=== PATIENT | male | born 1955 | race African-American/Black ===

== ENCOUNTER → 2020-04-26 09:22 | Outpatient (BNVA) | payer BC, SELFPAY | PROVIDERS: PCP Internal Medicine; Visit Provider Urology | DX: N40.1 Benign prostatic hyperplasia with lower urinary tract symptoms (principal); R35.1 Nocturia; R97.20 Elevated prostate specific antigen [PSA]; N52.9 Male erectile dysfunction, unspecified | CPT/HCPCS: 51798; 81002 ==

== ENCOUNTER → 2020-09-06 09:19 | Outpatient (BNVA) | payer BC, SELFPAY | PROVIDERS: PCP Internal Medicine; Visit Provider Urology ==

== ENCOUNTER 2020-12-19 12:18 | Outpatient (REF) | payer BC, SELFPAY ==
[2020-12-19 14:40] LABS: PSA,Total (Free>4and<10) 8.03 ng/mL (0.00-4.00)
[2020-12-20 13:50] LABS: Free Prostate Spec Ag 0.5 ng/mL; Percent Free Prostate Spec Ag 7 % (calc) (>25); Prostate Specific Ag Total 6.9 ng/mL (< OR = 4.0)
== END 2020-12-19 12:19 | disposition home or self-care (01) ==
LOC: HO.HMGCLDS 12:18
PROVIDERS: PCP Internal Medicine; Visit Provider Urology
DX: Z12.5 Encounter for screening for malignant neoplasm of prostate (principal); R97.20 Elevated prostate specific antigen [PSA]
CPT/HCPCS: 36415; 84153; 84154

== ENCOUNTER → 2021-01-07 08:27 | Outpatient (BNVA) | payer BC, SELFPAY | PROVIDERS: PCP Internal Medicine; Visit Provider Urology ==

== ENCOUNTER → 2021-02-11 14:04 | Outpatient (BNVA) | payer BC, SELFPAY | PROVIDERS: PCP Internal Medicine; Visit Provider Urology ==

== ENCOUNTER 2021-09-15 10:33 | Outpatient (REF) | payer BC, SELFPAY ==
[2021-09-15 12:22] LABS: PSA,Total (Free>4and<10) 11.29 ng/mL (0.00-4.00)
== END 2021-09-15 10:34 | disposition home or self-care (01) ==
LOC: HO.HMGCLDS 10:33
PROVIDERS: PCP Internal Medicine; Visit Provider Urology
DX: Z12.5 Encounter for screening for malignant neoplasm of prostate (principal); N13.8 Other obstructive and reflux uropathy; N40.1 Benign prostatic hyperplasia with lower urinary tract symptoms; R97.20 Elevated prostate specific antigen [PSA]
CPT/HCPCS: 36415; 84153

== ENCOUNTER → 2021-09-26 09:08 | Outpatient (BNVA) | payer BC, SELFPAY | PROVIDERS: PCP Internal Medicine; Visit Provider Urology | DX: R97.20 Elevated prostate specific antigen [PSA] (principal); N40.1 Benign prostatic hyperplasia with lower urinary tract symptoms | CPT/HCPCS: 51798 ==

== ENCOUNTER 2021-11-06 11:35 | Outpatient (REF) | payer BC, SELFPAY ==
[2021-11-06 11:24] VITALS: BP 127/72; PULSE 70; RESP 16; TEMP 37.2; O2SAT 97
[2021-11-06 11:26] VITALS: BMI 21.4
--- NOTE | 2021-11-06 12:41 | W.PM.OPN ---
Operative Note Operative Note Date of Service: 11/06/21 Narrative: Preoperative diagnosis: Elevated PSA Postoperative diagnosis: Elevated PSA Procedure: 1. transrectal ultrasound measurement of prostate 2. transrectal ultrasound-guided pudendal nerve block 3. transrectal ultrasound-guided prostate biopsy 12 core Surgeon: Dr. Luis Jefferson Anesthetic: Local Indications for procedure: Elevated PSA Procedure: After informed consent was verified, the patient was brought into the procedure area and lay left-hand side down on the table. Patient identity confirmed. Perioperative antibiotics confirmed. Safety pause time out performed. EZRA performed to dilate rectal sphincter Iodine 10cc with Gel was placed per rectum Ultrasound probe was placed per rectum The prostate was measured in 3 dimensions Total volume equals 40 gm Small cystic structures were noted No calcifications were noted at the surgical margin The prostate was otherwise homogeneous in nature An ultrasound-guided pudendal nerve block was performed using 10 cc of 1% lidocaine. 8 cc was placed at the base and 2 cc of the apex. A 12 core biopsy was performed with 6 cores each side. Two cores were taken at the apex, mid and base. Cores were spaced between lateral and medial. He tolerated the procedure well. Was able to ambulate to bathroom after 5 minutes. Printed instructions regarding antibiotic use and common side effects such as low-grade temperature, potential infection and bleeding were given Pathology: 12 core prostate biopsy.
== END 2021-11-06 11:36 | disposition home or self-care (01) ==
LOC: HO.MS 11:35
PROVIDERS: PCP Internal Medicine; Visit Provider Urology
PROC: (CPT 55700; principal; 2021-11-06 12:00)
DX: C61 Malignant neoplasm of prostate (principal); R97.20 Elevated prostate specific antigen [PSA]
CPT/HCPCS: 55700; 76942; 88305; 88344

== ENCOUNTER → 2021-12-23 10:56 | Outpatient (BNVA) | payer BC, SELFPAY | PROVIDERS: PCP Internal Medicine; Visit Provider Urology | DX: C61 Malignant neoplasm of prostate (principal); N40.1 Benign prostatic hyperplasia with lower urinary tract symptoms; N13.8 Other obstructive and reflux uropathy; R33.9 Retention of urine, unspecified; N52.9 Male erectile dysfunction, unspecified; R97.20 Elevated prostate specific antigen [PSA]; Z96.0 Presence of urogenital implants | CPT/HCPCS: 51798 ==

== ENCOUNTER → 2022-01-23 09:55 | Outpatient (BNVA) | payer BC, SELFPAY | PROVIDERS: PCP Internal Medicine; Visit Provider Urology | DX: C61 Malignant neoplasm of prostate (principal) | CPT/HCPCS: 96402; J9217 ==

== ENCOUNTER 2022-02-24 07:16 | Outpatient (REF) | payer BC, SELFPAY ==
[2022-02-24 07:44] VITALS: BMI 22.0
[2022-02-24 07:45] VITALS: BP 127/78; PULSE 78; RESP 16; TEMP 36.7; O2SAT 98
--- NOTE | 2022-02-24 08:29 | W.PM.OPN ---
Operative Note Operative Note Date of Service: 02/24/22 Narrative: Preoperative diagnosis: Prostate cancer Postoperative diagnosis: Prostate cancer Procedure: 1. Transrectal ultrasound-guided pudendal nerve block 2. Transrectal ultrasound-guided gold seed placement Surgeon: Dr. Luis Jefferson Anesthetic: Local Indications for procedure: Prostate Cancer Procedure: After informed consent was verified, the patient was brought into the procedure area and lay left-hand side down on the table. Patient identity confirmed. Perioperative antibiotics confirmed. Gel was placed per rectum Ultrasound probe was placed per rectum A ultrasound-guided pudendal nerve block was performed using 10 cc of 1% lidocaine. 8 cc was placed at the base and 2 cc of the apex. 2 gold seed markers placed. 1 on the right, 1 on the left. The purpose is for triangulation. He tolerated the procedure well. Was able to ambulate to bathroom after 5 minutes. Printed instructions regarding antibiotic use and common side effects such as low-grade temperature and bleeding were given
== END 2022-02-24 07:17 | disposition home or self-care (01) ==
LOC: HO.MS 07:16
PROVIDERS: PCP Internal Medicine; Visit Provider Urology
PROC: (CPT 55876; principal; 2022-02-24 08:00)
DX: C61 Malignant neoplasm of prostate (principal); N40.1 Benign prostatic hyperplasia with lower urinary tract symptoms; R35.1 Nocturia; R97.20 Elevated prostate specific antigen [PSA]
CPT/HCPCS: 55876; 76942; A4648

== ENCOUNTER 2022-05-18 06:09 | Day surgery (SDC) | payer BC, SELFPAY ==
[2022-05-13 14:58] VITALS: BMI 22.8
[2022-05-18 06:22] VITALS: BP 139/75; PULSE 79; RESP 18; TEMP 36.5; O2SAT 99
[2022-05-18 06:24] VITALS: BMI 22.8
[2022-05-18] MEDS: Lactated Ringers 1,000 ML 50 ML IVCONT (06:39)
--- NOTE | 2022-05-18 07:27 | HO.ANESPROP2 ---
HPI - Anesthesia Eval Consult details Narrative: for space OAR PMFSH Active Problems Active Problems: All Active Problems (Updated 05/13/22 @ 14:44 by Britt Valentin RN) Erectile dysfunction (Acute) Prostate cancer (Acute) Nocturia (Acute) Benign prostatic hyperplasia with lower urinary tract symptoms (Acute) Elevated PSA (Acute) Past Medical History Medical History (Updated 05/13/22 @ 14:44 by Britt Valentin RN) Benign prostatic hyperplasia with lower urinary tract symptoms Elevated PSA Erectile dysfunction Nocturia Prostate cancer Family History Family history of problems with anesthesia: No Surgical History Surgical History (Updated 05/13/22 @ 14:57 by Britt Valentin RN) H/O colonoscopy History of surgery Hx of prostate biopsy History of Problems with Anesthesia: No Social History Social History Are you a primary healthcare educator to a significant other at home: No Do you presently have visiting nurse or other home services: No Patient Tobacco Use Status: Never used Tobacco Use of substances other than those prescribed or required for medical reasons: No Have you been hit, kicked, punched, or otherwise hurt by someone within the past year? If so, by whom?: No Are you DNR?: No Advance Directives: No (states is primary contact-states has form at home) Advance Directives Information Provided: Yes Advance Directives on File: No Recently lost weight without trying: No Eating poorly because of decreased appetite: No Nutrition Risks: No Nutritional Risk Poor oral hygiene: No Meds Allergies Allergy/AdvReac Type Severity Reaction Status Date / Time ibuprofen Allergy Unknown unknown Verified 12/22/21 09:39 Active Medications: Current Medications Lactated Ringer's (Lr) 1,000 mls @ 50 mls/hr IVCONT .Q20H MICKY Last Admin: 05/18/22 06:39 Dose: 50 mls/hr Home Medications Medication Instructions Recorded Confirmed Last Taken Type finasteride 5 mg tablet 5 mg PO BEDTIME 05/13/22 05/13/22 Unknown History Exam Exam Date and Time: May 18, 2022 0727 Height,Weight and Vital Signs: Height 5 ft 8 in Weight 68.039 kg Last Vital Signs Temp 97.7 F 05/18/22 06:22 Pulse 79 05/18/22 06:22 Resp 18 05/18/22 06:22 BP 139/75 05/18/22 06:22 Pulse Ox 99 05/18/22 06:22 O2 Del Method Room Air 05/18/22 06:22 Airway Mallampati Class: I TM Dist: >3cm Neck ROM: Full Heart: ok Lungs: ok Assessment and Plan Assessment Anesthesia Assessment: Anesthesia Plan Discussed and Chart Reviewed Final Anesthetic Review Family History of Problems with Anesthesia: No History of Problems with Anesthesia: No NPO: Yes ASA Class: II Final Preanesthetic Review: No Changes in Pt Med Stat, Meds/Allgs Chart Reviewed, Consent Obtained/Reviewed and Anes Risks/Benef Reviewed Patient Risk: Low Procedure Risk: Low Anesthetic Plan Anesthetic Plan: GA and Agree w/ Assess. and Plan Disposition: Standard PACU
--- NOTE | 2022-05-18 10:59 | MHC.SHP ---
Pre-Procedural Eval Section A Date of Service: 05/18/22 The patient is an INPATIENT: No Changes since office visit: No Cold of Flu in the past 2 weeks, No New Medical Problems, No Changes in Medication and No Patient answered all questions The History & Physical has been completed within 30 days and I have reviewed it.: Yes Section B Chief Complaint: Malignant neoplasm of prostate Allergies: Allergies Allergy/AdvReac Type Severity Reaction Status Date / Time ibuprofen Allergy Unknown unknown Verified 12/22/21 09:39 Review of Systems Sugical H&P ROS: Negative: Constitution, Cardiovascular, Respiratory, Neurological, Psychiatric, Hem-Onc, Allergic/Immunologic, Gastrointestinal, Genitourinary, Musculoskeletal, Integumentary, Endocrine and Eyes/Ears/Nose/Throat Exam Surgical H&P Exam: Normal: HEENT, Normal: Heart, Normal: Lungs, Normal: Extremities, Normal: Abdomen, Normal: Skin and Normal: Neurological Plan Diagnosis/Plan: Unchanged (Space oar placement) I have reviewed the history and physical and performed a pertinent physical examination on my patient. No changes have occurred unless specified. Time Spent With Patient Time: Total time managing care of this patient today ____ minutes.
--- NOTE | 2022-05-18 12:02 | W.PM.OPN ---
Operative Note Operative Note Date of Service: 05/18/22 Narrative: Preoperative diagnosis: Prostate cancer Postoperative diagnosis: Prostate cancer Procedure: 1. Transrectal ultrasound-guided perineal SpaceOAR gel placement Surgeon: Dr. Luis Jefferson Anesthetic: Sedation Indications for procedure: Prostate Cancer Procedure: After informed consent was verified, the patient was brought into the operating room and anesthesia was performed per protocol. The patient was placed in a modified dorsal lithotomy position. Gel was placed per rectum Ultrasound probe was placed per rectum. The prostate was visualized in sagittal and transverse dimensions. Local anesthetic was infiltrated in the perineal area using 10 cc of lidocaine The delivery needle was advanced bevel down in the midline under ultrasound guidance to the apex of the prostate. It was advanced in the plane the prostate from the rectum to the midpoint of the prostate. Location was determined using sagittal and transverse imaging. At the midpoint of the prostate 1 cc of saline was placed to confirm needle position. Second cc of saline was placed to confirm spread toward the base of the prostate. With the needle in the confirmed position 10 cc of gel mixture was injected. Good separation was seen of the rectum from the prostate space running in the midline from the base toward the apex of the prostate. Following completion of the procedure the probe was removed from the rectum. He tolerated the procedure well. He was extubated in the operating room and transferred in stable condition to the recovery area. Pathology none Drains none
[2022-05-18 12:13] VITALS: BP 116/68; PULSE 85; RESP 16; TEMP 36.3; O2SAT 98
[2022-05-18 12:18] VITALS: BP 121/69; PULSE 85; RESP 16; O2SAT 98
[2022-05-18 12:23] VITALS: BP 125/71; PULSE 82; RESP 16; O2SAT 98
[2022-05-18 12:28] VITALS: BP 129/73; PULSE 75; RESP 16; O2SAT 99
[2022-05-18 12:43] VITALS: BP 125/71; PULSE 69; RESP 16; TEMP 36.2; O2SAT 98
== END 2022-05-18 14:04 | disposition home or self-care (01) ==
PROVIDERS: PCP Internal Medicine; Visit Provider Urology
PROC: (CPT 55874; principal; 2022-05-18 08:40)
DX: C61 Malignant neoplasm of prostate (principal); N40.1 Benign prostatic hyperplasia with lower urinary tract symptoms; R35.1 Nocturia
CPT/HCPCS: 55874; A4648; C1889; J1956; J3010

== ENCOUNTER 2022-08-20 10:49 | Outpatient (AMB) | payer BC, SELFPAY ==
--- NOTE | 2022-08-20 11:08 | A.OFFVIS_ITS ---
Intake Intake Visit Reasons: 3month follow up Intake Note: Patient is present for PVR/ Urology Med: Doxazosin, Finasteride, Sildenafil Antibiotic Allergy:None Blood Thinner: None PVR: 54ml Allergies ibuprofen Allergy (Unknown, Verified 08/20/22 11:09) unknown Medication List - Last Reconciled 08/20/22 by Luis Jefferson MD doxazosin 2 mg PO BEDTIME 90 days finasteride 5 mg PO BEDTIME 90 days sildenafil 100 mg PO DAILY PRN 30 days HPI HPI Comments History of Present Illness Details Mr Frias is a very pleasant [place] male. He is a patient of Dr Holder. He is seen for the following urologic conditions. - erectile dysfunction - prostate cancer Follow-up after completion of external beam radiation Tolerated therapy Did have increased urgency and frequency which responded to increased dose of doxazosin. He is now trying to reduce this dose. Otherwise did notice hot flashes from hormone therapy with some degree of muscle mass reduction Encouraged exercise Will remain on finasteride until end of year 3 month follow-up with PSA Prostate cancer - Grade Group 4 Initial therapy radiation with hormone therapy 07/[address] [facility] [address] [place], 7000Gy 28 fractions - SpaceOAR placement prior Adenocarcinoma of the prostate - T1c N0 M0, [place] score 4+3, Grade Group 3, PSA at Diagnosis 11 - NCCN unfavorable intermediate risk group Prostate cancer was diagnosed Dr Jefferson Diagnosis was reached by - needle biopsy - elevated PSA 11 - 40 g Date: 10/30 12 Core biopsy Positive Biopsies: 4 Negative Biopsies: 8 (%) Positive: Locations: Left base lateral [place] 3 + 3 10%, left mid lateral [place] 3 + 3 5%, left mid medial 4+3 30%, left apex lateral 3+4 15% TNM Classification of Malignant Tumours (TNM) - T1c Staging Imaging - 01/28 MRI organ confined small area of diffusion restriction 5mm left lateral apex Associated conditions erectile dysfunction yes Elevated PSA Repeat PSA 08/28 - 4.2 free 7%, 12/29 6.9, 09/29 11.3 Normal EZRA 2+ Erectile dysfunction: Good response with penile pump and restriction band Would like to continue with this He presents today for for continued evaluation and management of erectile dysfunction - use high dose PD 5. Symptoms have been present for/since 2011. Current treatment includes Viagra/sildenafil. Prior therapies include oral medications. At this time he experiences erections are partial and adequate for vaginal penetration - although gradually upcoming week. Nocturnal erections do not occur. Currently they are in a stable relationship. Recent labs included a PSA (prostate-specific antigen) 2015 2.3, 2016 3.9, 11/26 4.2. Overall he is satisfied with the current management. Therapeutic plan includes maintaining current therapy. [facility] Medical History (Updated 05/13/22 @ 14:44 by Britt Valentin RN) Benign prostatic hyperplasia with lower urinary tract symptoms Elevated PSA Erectile dysfunction Nocturia Prostate cancer Surgical History (Updated 05/13/22 @ 14:57 by Britt Valentin RN) H/O colonoscopy History of surgery Hx of prostate biopsy Social History Are you a primary care consultant to a significant other at home: No Do you presently have visiting nurse or other home services: No Patient Tobacco Use Status: Never used Tobacco Review of Systems Const Denies chills and Denies fever(s) Card Reports no additional complaints and Denies syncope Resp Denies cough GI Denies abdominal pain and Denies heartburn Reports as per HPI and Denies change in libido Neuro Denies syncope Psych Denies change in libido Endo Denies change in libido Physical Exam Const General: cooperative, healthy appearing, comfortable and no acute distress Orientation/consciousness: patient oriented x3 HEENT Face and sinus: Yes normal facial exam Mouth: moist mucous membranes Neck Neck: Yes normal visual inspection, Yes full ROM and Yes trachea midline Chest Chest palpation & inspection: normal inspection of the chest Resp Effort & Inspection: normal respiratory effort, able to speak in complete sentences and no respiratory distress GI Inspection: Yes normal to inspection Rectal Exam - Male: Yes normal sphincter tone and Yes prostate normal Male General Exam: Yes normal external exam Penis: normal penis and circumcised Meatus: meatus normal Scrotum: scrotum normal Testes: Testes normal Back/Spine/Pelvis Cervical Spine: normal cervical lordosis Thoracic/Lumbar Spine: thoracic and lumbar spine normal to inspection Skin General skin exam: no rashes or lesions noted Neuro General: patient oriented x3, gait normal, tone normal and moves all extremities Extrem General: Yes normal to inspection and Yes capillary refill normal Office Procedures Post Void Residual Post Residual Void Post Void Residual (PVR): 54 [id number] Void Residual by ultrasound Results AMB Urinalysis, Automated UA Leukoctes 0 Dre/uL Last Edit by Estephania Grossman, A on 08/20/22 11:23 UA Nitrite Last Edit by Estephania Grossman, RMA on 08/20/22 11:23 UA Urobilinogen 0.2 mg/dL Last Edit by Estephania Grossman, RMA on 08/20/22 11:2 3 UA Protein 0 mg/dL Last Edit by Estephania Grossman, RMA on 08/20/22 11:23 UA pH 6.0 Last Edit by Estephania Grossman, RMA on 08/20/22 11:23 UA Blood 0 Raul/uL Last Edit by Estephania Grossman, A on 08/20/22 11:23 UA Specific [place] 1.000 Last Edit by Estephania Grossman, A on 08/20/22 11: 23 UA Ketone Last Edit by Estephania Grossman, RMA on 08/20/22 11:23 UA Bilirubin 0 mg/dL Last Edit by Estephania Grossman, A on 08/20/22 11:23 UA Glucose 0 mg/dL Last Edit by Estephania Grossman, A on 08/20/22 11:23 Assessment & Plan Assessment & Plan (1) Prostate cancer: Comment: Low volume, high risk, clinically confined Code(s): C61 - Malignant neoplasm of prostate Plan 3 month follow-up Orders: Orders AMB Post Void Residual by ultrasound Today N40.1 - Benign prostatic hyperplasia with lower urinary tract symptoms Luis Jefferson MD AMB Urinalysis Automated Today Z13.9 - Encounter for screening, unspecified Luis Jefferson MD Prostate Specific Antigen 3 Months C61 - Malignant neoplasm of prostate Luis Jefferson MD Medications: Changed From finasteride 5 mg PO BEDTIME C61 - Malignant neoplasm of prostate To finasteride 5 mg PO BEDTIME 90 tabs 1RF 90 days C61 - Malignant neoplasm of prostate Luis Jefferson MD Discontinued finasteride 5 mg PO DAILY 90 tabs 1RF 90 days N40.1 - Benign prostatic hyperplasia with lower urinary tract symptoms, R33.9 - Retention of urine, unspecified, R97.20 - Elevated prostate specific antigen [PSA] Britt Valentin RN Patient Instructions: Imaging studies, laboratory and physical exam results were discussed and reviewed in detail. No major barriers to patient understanding were identified. An opportunity to ask questions regarding the treatment plan was provided. All questions were answered. The patient expressed understanding and agreement with the above treatment plan. The patient is aware they should contact our office by phone for worsening of their current condition or the appearance of new urologic symptoms. Compliance is encouraged with any medications and followup testing that is ordered. It is a privilege to participate in the urologic care of your patient. If you have any questions or concerns regarding treatment for the above conditions, or other urologic issues, please do not hesitate to contact me. The office telephone contact is [phone]. This note is constructed using voice recognition software. While every effort has been made to ensure accuracy analytics lead errors may have been included. Yours sincerely, Dr Luis Jefferson MD, [facility] - Urology Providers of Expert, Compassionate Care for the Genitourinary System Coding Level of Care Code Est Pt Level 3 (02619) Diagnoses Prostate cancer C61 CPT Codes Post Residual Void - PVR CPT Code: 30730-Sfjx Void Residual by ultrasound ([id number])
== END 2022-08-20 11:33 | disposition home or self-care (01) ==
PROVIDERS: Visit Provider Urology
DX: C61 Malignant neoplasm of prostate (principal)
CPT/HCPCS: 99213

== ENCOUNTER → 2022-08-20 10:49 | Outpatient (BNVA) | payer BC, SELFPAY | PROVIDERS: Visit Provider Urology | DX: C61 Malignant neoplasm of prostate (principal); N52.9 Male erectile dysfunction, unspecified; Z79.899 Other long term (current) drug therapy | CPT/HCPCS: 51798 ==

== ENCOUNTER 2022-11-02 09:49 | Outpatient (REF) | payer BC, SELFPAY ==
[2022-11-02 13:52] LABS: Prostate Specific Antigen < 0.10 ng/mL (<0.05-4.0)
== END 2022-11-02 09:50 | disposition home or self-care (01) ==
LOC: HO.HMGCLDS 09:49
PROVIDERS: PCP Internal Medicine; Visit Provider Urology
DX: C61 Malignant neoplasm of prostate (principal)
CPT/HCPCS: 36415; 84153

== ENCOUNTER 2022-11-20 09:47 | Outpatient (AMB) | payer BC, SELFPAY ==
--- NOTE | 2022-11-20 09:47 | MHC.OFFVIS ---
Intake Intake Visit Reasons: 3M PSA(set) Intake Note: Patient is present for TELEHEALTH FOLLOWUP Urology Med: Doxazosin, Finasteride, Sildenafil Antibiotic Allergy:None Blood Thinner: None Pharm:[facility] Allergies ibuprofen Allergy (Unknown, Verified 11/20/22 09:49) unknown Medication List - Last Reconciled 11/20/22 by Luis Jefferson MD doxazosin 2 mg PO BEDTIME 90 days finasteride 5 mg PO BEDTIME 90 days sildenafil 100 mg PO DAILY PRN 30 days tadalafil 5 mg PO DAILY 90 days HPI HPI Comments History of Present Illness Details Mr Frias is a very pleasant [place]ron[place] male. He is a patient of Dr Holder. He is seen for the following urologic conditions. - erectile dysfunction - prostate cancer PSA 10/31 <0.1 Trial daily tadalafil for bladder stability Finasteride to stop end of year 3 month follow-up PSA and T Prostate cancer - Grade Group 4 - EXBRT 07/31 [facility]+6m hormones Initial therapy radiation with hormone therapy 07/31 [facility] Dr Johnson, 7000Gy 28 fractions - SpaceOAR placement prior Adenocarcinoma of the prostate - T1c N0 M0, Marva score 4+3, Grade Group 3, PSA at Diagnosis 11 - NCCN unfavorable intermediate risk group Prostate cancer was diagnosed Dr Jefferson Diagnosis was reached by - needle biopsy - elevated PSA 11 - 40 g Date: 10/30 12 Core biopsy Positive Biopsies: 4 Negative Biopsies: 8 - (%) Positive: Locations: Left base lateral [place] 3 + 3 10%, left mid lateral Marva 3 + 3 5%, left mid medial 4+3 30%, left apex lateral 3+4 15% TNM Classification of Malignant Tumours (TNM) - T1c Staging Imaging - 01/28 MRI organ confined small area of diffusion restriction 5mm left lateral apex Associated conditions erectile dysfunction yes Elevated PSA Repeat PSA 08/28 - 4.2 free 7%, 12/29 6.9, 09/29 11.3 Normal EZRA 2+ Erectile dysfunction: Good response with penile pump and restriction band Would like to continue with this He presents today for for continued evaluation and management of erectile dysfunction - use high dose PD 5. Symptoms have been present for/since 2011. Current treatment includes Viagra/sildenafil. Prior therapies include oral medications. At this time he experiences erections are partial and adequate for vaginal penetration - although gradually upcoming week. Nocturnal erections do not occur. Currently they are in a stable relationship. Recent labs included a PSA (prostate-specific antigen) 2015 2.3, 2017 3.9, 11/26 4.2. Overall he is satisfied with the current management. Therapeutic plan includes maintaining current therapy. [facility] Medical History Prostate cancer Erectile dysfunction Benign prostatic hyperplasia with lower urinary tract symptoms Nocturia Elevated PSA Surgical History H/O colonoscopy History of surgery Hx of prostate biopsy Social History Are you a primary care companion to a significant other at home: No Do you presently have visiting nurse or other home services: No Patient Tobacco Use Status: Never used Tobacco Review of Systems Const All systems reviewed & are unremarkable except as noted in HPI and below Reports no additional complaints Resp Reports no additional complaints GI Reports no additional complaints Reports as per HPI Musc Reports no additional complaints Physical Exam Telemedicine evaluation Appropriate responses Regular breathing rate and rhythm HEENT Head: Yes normal to inspection Ears: hearing grossly normal bilaterally Eyes General: appearance normal, both eyes and all related structures Neck Neck: Yes normal visual inspection Chest Chest palpation & inspection: normal inspection of the chest Resp Effort & Inspection: normal respiratory effort and able to speak in complete sentences Assessment & Plan Assessment & Plan (1) Erectile dysfunction: Code(s): N52.9 - Male erectile dysfunction, unspecified Qualifiers: Post-procedural erectile dysfunction type: following radiation therapy (2) Prostate cancer: Comment: Low volume, high risk, clinically confined Code(s): C61 - Malignant neoplasm of prostate Plan Three month follow-up labs Orders: Orders Prostate Specific Antigen 3 Months C61 - Malignant neoplasm of prostate Testosterone, Total 3 Months C61 - Malignant neoplasm of prostate Medications: New tadalafil take daily 5 mg PO DAILY 90 days 90 tabs 0RF sexual activity C61 - Malignant neoplasm of prostate Patient Instructions: Imaging studies, laboratory and physical exam results were discussed and reviewed in detail. No major barriers to patient understanding were identified. An opportunity to ask questions regarding the treatment plan was provided. All questions were answered. The patient expressed understanding and agreement with the above treatment plan. The patient is aware they should contact our office by phone for worsening of their current condition or the appearance of new urologic symptoms. Compliance is encouraged with any medications and followup testing that is ordered. It is a privilege to participate in the urologic care of your patient. If you have any questions or concerns regarding treatment for the above conditions, or other urologic issues, please do not hesitate to contact me. The office telephone contact is [phone]. This note is constructed using voice recognition software. While every effort has been made to ensure accuracy assistant art director errors may have been included. Yours sincerely, Dr Luis Jefferson MD, [facility] - Urology Providers of Expert, Compassionate Care for the Genitourinary System Telehealth Telehealth Location of provider rendering services: practice address Location of patient: address on file Patient Identification confirmed using: Name, : Yes Telehealth method: video Patient verbally consented to treatment: Yes Patient verbally consented to billing insurance company: Yes Patient informed of any privacy concerns related to visit: Yes Coding Level of Care Code Tele Est Pt Level 4 (67271) Diagnoses Erectile dysfunction N52.9 Post-procedural erectile dysfunction type: following radiation therapy Prostate cancer C61
== END 2022-11-20 11:22 | disposition home or self-care (01) ==
LOC: HO.HUSH 09:47
PROVIDERS: PCP Internal Medicine; Visit Provider Urology
DX: N52.9 Male erectile dysfunction, unspecified (principal); C61 Malignant neoplasm of prostate
CPT/HCPCS: 99214

== ENCOUNTER → 2022-11-20 09:47 | Outpatient (BNVA) | payer BC, SELFPAY | PROVIDERS: PCP Internal Medicine; Visit Provider Urology ==

== ENCOUNTER 2023-02-09 11:39 | Outpatient (REF) | payer BC, SELFPAY ==
[2023-02-09 14:01] LABS: Prostate Specific Antigen < 0.10 ng/mL (<0.05-4.0)
[2023-02-12 16:33] LABS: Testosterone, Total 469 ng/dL (250-1100)
== END 2023-02-09 11:40 | disposition home or self-care (01) ==
LOC: HO.HMGCLDS 11:39
PROVIDERS: PCP Internal Medicine; Visit Provider Urology
DX: Z12.5 Encounter for screening for malignant neoplasm of prostate (principal); C61 Malignant neoplasm of prostate
CPT/HCPCS: 36415; 84153; 84403

== ENCOUNTER 2023-02-23 10:51 | Outpatient (AMB) | payer BC, SELFPAY ==
--- NOTE | 2023-02-23 10:55 | MHC.OFFVIS ---
Intake Intake Visit Reasons: 3M PSA/Testo/Med Review(Tadalafil)(Set) Intake Note: Patient is Present for Follow Up Labs/Med Review/PVR Urology Medication: Doxazosin, Tadalafil Antibiotic Allergies:None Blood Thinners: None Patient states that he had stopped finasteride in January as Dr Jefferson Instructed him to do, He is no longer on sildenafil (Few years he has been off med) Patient states with Tadalafil he has seen improvement. PVR: 0 Allergies ibuprofen Allergy (Unknown, Verified 02/23/23 10:59) unknown Medication List - Last Reconciled 02/23/23 by Luis Jefferson MD doxazosin 2 mg PO BEDTIME 90 days finasteride 5 mg PO BEDTIME 90 days sildenafil 100 mg PO DAILY PRN 30 days tadalafil 5 mg PO DAILY 90 days HPI HPI Comments History of Present Illness Details Mr Frias is a very pleasant [place]inamese male. He is a patient of Dr Holder. He is seen for the following urologic conditions. - erectile dysfunction - prostate cancer Three-month follow-up PSA stable, testosterone recovered PSA 10/31 <0.1, 03/03 <0.1 T 470 Great response Off finasteride Continue surveillance Prostate cancer - Grade Group 4 - EXBRT 07/31 [facility]+6m hormones Initial therapy radiation with hormone therapy 07/31 [facility] Dr Johnson, 7000Gy 28 fractions - SpaceOAR placement prior Adenocarcinoma of the prostate - T1c N0 M0, Marva score 4+3, Grade Group 3, PSA at Diagnosis 11 - NCCN unfavorable intermediate risk group Prostate cancer was diagnosed Dr Jefferson Diagnosis was reached by - needle biopsy - elevated PSA 11 - 40 g Date: 10/30 12 Core biopsy Positive Biopsies: 4 Negative Biopsies: 8 - (%) Positive: Locations: Left base lateral Marva 3 + 3 10%, left mid lateral [place] 3 + 3 5%, left mid medial 4+3 30%, left apex lateral 3+4 15% TNM Classification of Malignant Tumours (TNM) - T1c Staging Imaging - 01/28 MRI organ confined small area of diffusion restriction 5mm left lateral apex Associated conditions erectile dysfunction yes Elevated PSA Repeat PSA 08/28 - 4.2 free 7%, 12/29 6.9, 09/29 11.3 Normal EZRA 2+ Erectile dysfunction: Good response with penile pump and restriction band Would like to continue with this He presents today for for continued evaluation and management of erectile dysfunction - use high dose PD 5. Symptoms have been present for/since 2011. Current treatment includes Viagra/sildenafil. Prior therapies include oral medications. At this time he experiences erections are partial and adequate for vaginal penetration - although gradually upcoming week. Nocturnal erections do not occur. Currently they are in a stable relationship. Recent labs included a PSA (prostate-specific antigen) 2015 2.3, 2016 3.9, 11/26 4.2. Overall he is satisfied with the current management. Therapeutic plan includes maintaining current therapy. [facility] Medical History Prostate cancer Erectile dysfunction Benign prostatic hyperplasia with lower urinary tract symptoms Nocturia Elevated PSA Surgical History H/O colonoscopy History of surgery Hx of prostate biopsy Social History Are you a primary primary care nurse practitioner to a significant other at home: No Do you presently have visiting nurse or other home services: No Patient Tobacco Use Status: Never used Tobacco Review of Systems Const Denies chills and Denies fever(s) Card Reports no additional complaints and Denies syncope Resp Denies cough GI Denies abdominal pain and Denies heartburn Reports as per HPI and Denies change in libido Neuro Denies syncope Psych Denies change in libido Endo Denies change in libido Physical Exam Const General: cooperative, healthy appearing, comfortable and no acute distress Orientation/consciousness: patient oriented x3 HEENT Face and sinus: Yes normal facial exam Mouth: moist mucous membranes Neck Neck: Yes normal visual inspection, Yes full ROM and Yes trachea midline Chest Chest palpation & inspection: normal inspection of the chest Resp Effort & Inspection: normal respiratory effort, able to speak in complete sentences and no respiratory distress GI Inspection: Yes normal to inspection Back/Spine/Pelvis Cervical Spine: normal cervical lordosis Thoracic/Lumbar Spine: thoracic and lumbar spine normal to inspection Skin General skin exam: no rashes or lesions noted Neuro General: patient oriented x3, gait normal, tone normal and moves all extremities Extrem General: Yes normal to inspection and Yes capillary refill normal Office Procedures Post Void Residual Post Residual Void Post Void Residual (PVR): 0 [id number] Void Residual by ultrasound Assessment & Plan Assessment & Plan (1) Prostate cancer: Comment: Low volume, high risk, clinically confined Code(s): C61 - Malignant neoplasm of prostate (2) Erectile dysfunction: Code(s): N52.9 - Male erectile dysfunction, unspecified Qualifiers: Post-procedural erectile dysfunction type: following radiation therapy Plan Four month follow-up PSA Orders: Orders Prostate Specific Antigen 4 Months C61 - Malignant neoplasm of prostate AMB Post Void Residual by ultrasound Today N40.1 - Benign prostatic hyperplasia with lower urinary tract symptoms Medications: Refilled tadalafil take daily 5 mg PO DAILY 90 tabs 1RF sexual activity 90 days C61 - Malignant neoplasm of prostate Patient Instructions: Imaging studies, laboratory and physical exam results were discussed and reviewed in detail. No major barriers to patient understanding were identified. An opportunity to ask questions regarding the treatment plan was provided. All questions were answered. The patient expressed understanding and agreement with the above treatment plan. The patient is aware they should contact our office by phone for worsening of their current condition or the appearance of new urologic symptoms. Compliance is encouraged with any medications and followup testing that is ordered. It is a privilege to participate in the urologic care of your patient. If you have any questions or concerns regarding treatment for the above conditions, or other urologic issues, please do not hesitate to contact me. The office telephone contact is [phone]. This note is constructed using voice recognition software. While every effort has been made to ensure accuracy tar kettle runner errors may have been included. Yours sincerely, Dr Luis Jefferson MD, [facility] - Urology Providers of Expert, Compassionate Care for the Genitourinary System Coding Level of Care Code Est Pt Level 3 (03613) Diagnoses Prostate cancer C61 Erectile dysfunction N52.9 Post-procedural erectile dysfunction type: following radiation therapy CPT Codes Post Residual Void - PVR CPT Code: [id number]-[id number] Void Residual by ultrasound ([id number])
== END 2023-02-23 11:36 | disposition home or self-care (01) ==
PROVIDERS: PCP Internal Medicine; Visit Provider Urology
DX: C61 Malignant neoplasm of prostate (principal); N52.9 Male erectile dysfunction, unspecified
CPT/HCPCS: 99213

== ENCOUNTER → 2023-02-23 10:51 | Outpatient (BNVA) | payer BC, SELFPAY | PROVIDERS: PCP Internal Medicine; Visit Provider Urology | DX: C61 Malignant neoplasm of prostate (principal); N52.9 Male erectile dysfunction, unspecified; N40.1 Benign prostatic hyperplasia with lower urinary tract symptoms | CPT/HCPCS: 51798 ==

== ENCOUNTER 2023-06-04 09:30 | Outpatient (REF) | payer BC, SELFPAY ==
[2023-06-04 11:42] LABS: Prostate Specific Antigen < 0.10 ng/mL (<0.05-4.0)
== END 2023-06-04 09:31 | disposition home or self-care (01) ==
LOC: HO.HMGCLDS 09:30
PROVIDERS: PCP Internal Medicine; Visit Provider Urology
DX: Z12.5 Encounter for screening for malignant neoplasm of prostate (principal); C61 Malignant neoplasm of prostate
CPT/HCPCS: 36415; 84153

== ENCOUNTER 2023-06-25 08:45 | Outpatient (AMB) | payer BC, SELFPAY ==
--- NOTE | 2023-06-25 08:46 | MHC.OFFVIS ---
Intake Visit Reasons: 4m/PSA(set) Supercalender Operator Required: No Allergies ibuprofen Allergy (Unknown, Verified 02/23/23 10:59) unknown Medication List - Last Reconciled 06/25/23 by Luis Jefferson MD doxazosin 2 mg PO BEDTIME 90 days HPI Comments Details: Mr Frias is a very pleasant [place] male. He is a patient of Dr Holder. He is seen for the following urologic conditions. - erectile dysfunction - prostate cancer Telemedicine Evaluation 15 min Consultation Doximity Beni Video PSA stable, testosterone recovered PSA 10/31 <0.1, 03/03 <0.1 T 470, 06/01 <0.1 Prostate cancer - Grade Group 3 - EXBRT 07/31 [facility]+6m hormones Initial therapy radiation with hormone therapy 07/31 [facility] Dr Johnson, 7000Gy 28 fractions - SpaceOAR placement prior Adenocarcinoma of the prostate - T1c N0 M0, [place] score 4+3, Grade Group 3, PSA at Diagnosis 11 - NCCN unfavorable intermediate risk group Prostate cancer was diagnosed Dr Jefferson Diagnosis was reached by - needle biopsy - elevated PSA 11 - 40 g Date: 10/30 12 Core biopsy Positive Biopsies: 4 Negative Biopsies: 8 - (%) Positive: Locations: Left base lateral [place] 3 + 3 10%, left mid lateral Marva 3 + 3 5%, left mid medial 4+3 30%, left apex lateral 3+4 15% TNM Classification of Malignant Tumours (TNM) - T1c Staging Imaging - 01/28 MRI organ confined small area of diffusion restriction 5mm left lateral apex Associated conditions erectile dysfunction yes Elevated PSA Repeat PSA 08/28 - 4.2 free 7%, 12/29 6.9, 09/29 11.3 Normal EZRA 2+ Erectile dysfunction: Good response with penile pump and restriction band Would like to continue with this He presents today for for continued evaluation and management of erectile dysfunction - use high dose PD 5. Symptoms have been present for/since 2011. Current treatment includes Viagra/sildenafil. Prior therapies include oral medications. At this time he experiences erections are partial and adequate for vaginal penetration - although gradually upcoming week. Nocturnal erections do not occur. Currently they are in a stable relationship. Recent labs included a PSA (prostate-specific antigen) 2015 2.3, 2016 3.9, 11/26 4.2. Overall he is satisfied with the current management. Therapeutic plan includes maintaining current therapy. [facility] Medical History Prostate cancer Erectile dysfunction Benign prostatic hyperplasia with lower urinary tract symptoms Nocturia Elevated PSA Surgical History H/O colonoscopy History of surgery Hx of prostate biopsy Social History Are you a primary health care marketing manager to a significant other at home: No Do you presently have visiting nurse or other home services: No Patient Tobacco Use Status: Never used Tobacco Telehealth Telehealth Telehealth Platform: [employer] Location of provider rendering services: practice address Location of patient: address on file Patient Identification confirmed using: Name, : Yes Telehealth method: video Patient verbally consented to treatment: Yes Patient verbally consented to billing insurance company: Yes Patient informed of any privacy concerns related to visit: Yes Minutes spent on Phone/Video with Pt.: 15 Assessment & Plan Assessment & Plan (1) Prostate cancer: Comment: Low volume, high risk, clinically confined Code(s): C61 - Malignant neoplasm of prostate Category: Medical (2) Nocturia: Code(s): R35.1 - Nocturia Category: Medical Plan Four month follow-up PSA Orders: Orders Prostate Specific Antigen 4 Months C61 - Malignant neoplasm of prostate Patient Instructions: Imaging studies, laboratory and physical exam results were discussed and reviewed in detail. No major barriers to patient understanding were identified. An opportunity to ask questions regarding the treatment plan was provided. All questions were answered. The patient expressed understanding and agreement with the above treatment plan. The patient is aware they should contact our office by phone for worsening of their current condition or the appearance of new urologic symptoms. Compliance is encouraged with any medications and followup testing that is ordered. It is a privilege to participate in the urologic care of your patient. If you have any questions or concerns regarding treatment for the above conditions, or other urologic issues, please do not hesitate to contact me. The office telephone contact is [phone]. This note is constructed using voice recognition software. While every effort has been made to ensure accuracy head strength and conditioning coach errors may have been included. Yours sincerely, Dr Luis Jefferson MD, [facility] - Urology Providers of Expert, Compassionate Care for the Genitourinary System Coding Level of Care Code Tele Est Pt Level 3 (88642) Complex EM visit Add On G2211 Diagnoses Prostate cancer C61 Nocturia R35.1
== END 2023-06-25 09:44 | disposition home or self-care (01) ==
LOC: HO.HUSH 08:45
PROVIDERS: PCP Internal Medicine; Visit Provider Urology
DX: C61 Malignant neoplasm of prostate (principal); R35.1 Nocturia
CPT/HCPCS: 99213

== ENCOUNTER → 2023-06-25 08:45 | Outpatient (BNVA) | payer BC, SELFPAY | PROVIDERS: PCP Internal Medicine; Visit Provider Urology ==

== ENCOUNTER 2023-10-15 10:57 | Outpatient (REF) | payer BC, SELFPAY ==
[2023-10-15 14:25] LABS: Prostate Specific Antigen 0.12 ng/mL (<0.05-4.0)
== END 2023-10-15 10:58 | disposition home or self-care (01) ==
LOC: HO.HMGCLDS 10:57
PROVIDERS: PCP Internal Medicine; Visit Provider Urology
DX: C61 Malignant neoplasm of prostate (principal); Z12.5 Encounter for screening for malignant neoplasm of prostate
CPT/HCPCS: 36415; 84153

== ENCOUNTER 2023-10-26 11:07 | Outpatient (AMB) | payer BC, SELFPAY ==
--- NOTE | 2023-10-26 11:19 | MHC.OFFVIS ---
Intake Visit Reasons: 4M Follow Up-PSA(SET) Intake Note: Patient is Present for Follow Up PSA Urology Medication: Doxazosin Antibiotic Allergies:None Blood Thinners: None Recent PSA: 10/15/2023- 0.12 Last PSA- <0.10 Patient states he needs a refill on Doxazosin Tadalafil was discontinued by Patient Patient states that he does not have any urinary issues at the moment he reports he gets up 1-2 times during the Night Last PVR :0 Insulator Helper Required: No Accompanied by: Self / Same As Patient Allergies ibuprofen Allergy (Unknown, Verified 10/26/23 11:25) unknown Medication List - Last Reconciled 10/26/23 by Luis Jefferson MD doxazosin 2 mg PO BEDTIME 90 days HPI Comments Details: Mr Frias is a very pleasant [place]kin[place] male. He is a patient of Dr Holder. He is seen for the following urologic conditions. - erectile dysfunction - prostate cancer PSA stable, testosterone recovered Urine stable on doxazosin Will try to come off Discussed dietary impact for prostate cancer Minimal data to support changes beyond general recommendations to have a plant forward diet PSA 10/31 <0.1, 03/03 <0.1 T 470, 06/01 <0.1, 11/01 0.12 Prostate cancer - Grade Group 3 - EXBRT 07/31 [facility]+6m hormones Initial therapy radiation with hormone therapy 07/31 [facility] Dr Johnson, 7000Gy 28 fractions - SpaceOAR placement prior Adenocarcinoma of the prostate - T1c N0 M0, [place] score 4+3, Grade Group 3, PSA at Diagnosis 11 - NCCN unfavorable intermediate risk group Prostate cancer was diagnosed Dr Jefferson Diagnosis was reached by - needle biopsy - elevated PSA 11 - 40 g Date: 10/30 12 Core biopsy Positive Biopsies: 4 Negative Biopsies: 8 - (%) Positive: Locations: Left base lateral Marva 3 + 3 10%, left mid lateral [place] 3 + 3 5%, left mid medial 4+3 30%, left apex lateral 3+4 15% TNM Classification of Malignant Tumours (TNM) - T1c Staging Imaging - 01/28 MRI organ confined small area of diffusion restriction 5mm left lateral apex Associated conditions erectile dysfunction yes Elevated PSA Repeat PSA 08/28 - 4.2 free 7%, 12/29 6.9, 09/29 11.3 Normal EZRA 2+ Erectile dysfunction: Good response with penile pump and restriction band Would like to continue with this He presents today for for continued evaluation and management of erectile dysfunction - use high dose PD 5. Symptoms have been present for/since 2011. Current treatment includes Viagra/sildenafil. Prior therapies include oral medications. At this time he experiences erections are partial and adequate for vaginal penetration - although gradually upcoming week. Nocturnal erections do not occur. Currently they are in a stable relationship. Recent labs included a PSA (prostate-specific antigen) 2015 2.3, 2016 3.9, 11/26 4.2. Overall he is satisfied with the current management. Therapeutic plan includes maintaining current therapy. COUNT INCLUDES [facility] Medical History Prostate cancer Erectile dysfunction Benign prostatic hyperplasia with lower urinary tract symptoms Nocturia Elevated PSA Surgical History H/O colonoscopy History of surgery Hx of prostate biopsy Social History Are you a primary care director to a significant other at home: No Do you presently have visiting nurse or other home services: No Patient Tobacco Use Status: Never used Tobacco Review of Systems Const Denies chills and Denies fever(s) Card Reports no additional complaints and Denies syncope Resp Denies cough GI Denies abdominal pain and Denies heartburn Reports as per HPI and Denies change in libido Neuro Denies syncope Psych Denies change in libido Endo Denies change in libido Physical Exam Const General: cooperative, healthy appearing, comfortable and no acute distress Orientation/consciousness: patient oriented x3 HEENT Face and sinus: Yes normal facial exam Mouth: moist mucous membranes Neck Neck: Yes normal visual inspection, Yes full ROM and Yes trachea midline Chest Chest palpation & inspection: normal inspection of the chest Resp Effort & Inspection: normal respiratory effort, able to speak in complete sentences and no respiratory distress GI Inspection: Yes normal to inspection Back/Spine/Pelvis Cervical Spine: normal cervical lordosis Thoracic/Lumbar Spine: thoracic and lumbar spine normal to inspection Skin General skin exam: no rashes or lesions noted Neuro General: patient oriented x3, gait normal, tone normal and moves all extremities Extrem General: Yes normal to inspection and Yes capillary refill normal Assessment & Plan Assessment & Plan (1) Erectile dysfunction: Code(s): N52.9 - Male erectile dysfunction, unspecified Category: Medical Qualifiers: Post-procedural erectile dysfunction type: following radiation therapy (2) Prostate cancer: Comment: Low volume, high risk, clinically confined Code(s): C61 - Malignant neoplasm of prostate Category: Medical Plan Six-month follow-up Orders: Orders Prostate Specific Antigen 6 Months C61 - Malignant neoplasm of prostate Patient Instructions: Imaging studies, laboratory and physical exam results were discussed and reviewed in detail. No major barriers to patient understanding were identified. An opportunity to ask questions regarding the treatment plan was provided. All questions were answered. The patient expressed understanding and agreement with the above treatment plan. The patient is aware they should contact our office by phone for worsening of their current condition or the appearance of new urologic symptoms. Compliance is encouraged with any medications and followup testing that is ordered. It is a privilege to participate in the urologic care of your patient. If you have any questions or concerns regarding treatment for the above conditions, or other urologic issues, please do not hesitate to contact me. The office telephone contact is [phone]. This note is constructed using voice recognition software. While every effort has been made to ensure accuracy poker room manager errors may have been included. Yours sincerely, Dr Luis Jefferson MD, [facility] - Urology Providers of Expert, Compassionate Care for the Genitourinary System Coding Level of Care Code Est Pt Level 3 (45509) Diagnoses Erectile dysfunction N52.9 Post-procedural erectile dysfunction type: following radiation therapy Prostate cancer C61
== END 2023-10-26 11:46 | disposition home or self-care (01) ==
PROVIDERS: PCP Internal Medicine; Visit Provider Urology
DX: N52.9 Male erectile dysfunction, unspecified (principal); C61 Malignant neoplasm of prostate
CPT/HCPCS: 99213

== ENCOUNTER → 2023-10-26 11:07 | Outpatient (BNVA) | payer BC, SELFPAY | PROVIDERS: PCP Internal Medicine; Visit Provider Urology ==

== ENCOUNTER 2024-04-22 09:54 | Outpatient (REF) | payer BC, SELFPAY ==
--- OUTSIDE RECORDS SUMMARY | 2024-04-22 09:56 | XMS_ITS | Encounter Summary ---
Author Organization [employer] Address [address] [place] [address] Care Team Providers Care Manager Language Name Role Phone Christiane Holder MD Primary Care Provider [phone] Reason for Referral * Consultation (Routine) - Authorized Specialty Diagnoses / Procedures Referred By Contac t Referred To Contact Urology Diagnoses Prostate cancer (CMS/HCC) Christiane Holder MD [address] [place] [address] Phone: tel: fax: Luis Jefferson MD [address] [place] [phone] Phone: tel: Referral ID Status Reason Start Date Expiration Date Visits Requested Visits Authorized [id number] Authorized Specialty Services Required 04/21/2024 04/20/2025 10 10 Reason for Visit * Reason Onset Date Comments Referral 04/17/2024 Fax requesting a n insurance referral - urology Encounter Details Date Type Department Care Team (Late st Contact Info) Description 04/17/2024 Telephone Adult Medicine [address] [phone] Christiane Holder MD [address] [place] [address] Referral (Fax requesting an insurance referral - urology) Social History Tobacco Use Types Packs/Day Years Used Date Smoking Tobacco: Never Smokeless Tobacco: Never Alcohol Use Standard Drinks/Week Comments Yes 0 (1 standard drink = 0.6 oz pur e alcohol) Housing Instability Answer Date Recorde d Are you worried that in the next 2 months you may not have stable housing? No 01/17/2024 Food Access & Nutrition Answer Date Rec orded Do you have access to a vari ety of food including fruits and vegetables? Yes 01/17/2024 Health Literacy Answer Date Recorded How often do you need to hav e someone help you when you read instructions, pamphlets, or other written material from your doctor or pharmacy? Never 01/17/2024 Caregiver: How often do you need to have someone help you when you read instructions, pamphlets, or other written material from your doctor or pharmacy? Not on file 01/17/2024 Financial Risk Answer Date Recorded How hard is it for you to pa y for the very basics like food, housing, medical care, and air conditioning / heating? Not very hard 01/17/2024 Transportation Answer Date Recorded Has the lack of transportati on kept you from meetings, work, or from getting things needed for daily living? No Has the lack of transportati on kept you from medical appointments or from getting medications? No 01/17/2024 Social Isolation Answer Date Recorded How often do you feel lonely or isolated from th ose around you? Never 01/17/2024 Food Risk Answer Date Recorded Within the past 12 months we worried whether our food would run out before we got money to buy more. Never true 01/17/2024 Within the past 12 months th e food we bought just didn't last and we didn't have money to get more. Never true 01/17/2024 Dependent Care Answer Date Recorded Do you need help finding or paying for care for your loved ones. For example, director child development center or elderly care for an older adult? No 01/17/2024 Education Answer Date Recorded Do you think completing more education or training, like finishing a GED, going to college, or learning a trade, would be helpful for you? No 01/17/2024 Employment and Income Answer Date Recor ded During the last four weeks, have you been actively looking for work? No 01/17/2024 Living Situation Answer Date Recorded What is your living situation? 1 03/19/2023 Sex and Gender Information Value Date Recorded Sex Assigned at Not on file Legal Sex Male 1:07 AM EST Gender Identity Not on file Sexual Orientation Not on file documented as of this encounter Progress Notes * Samantha Graciamarylou - 04/17/2024 3:39 PM EDT Fax rec'd requesting an insurance referral Caller: Fax Office: [facility] [place]: urology Insurance: ID: [id number] Provider: Luis Jefferson DOS: 05/05/24 Visits: 10 Dx code: N52.9 Pls create an order with the above information so that I may process it through the pts insurance. Thank you IMPORTANT Pls copy and paste the above info into the order. Otherwise, it will not be processed as an ins referral documented in this encounter Plan of Treatment Upcoming Encounters Date Type Department Care Team (Late st Contact Info) Description 06/05/2024 10:30 AM EDT Office Visit Gastroenterology - [address] [place] [phone] Jeri Quintero PA [address] [place] [phone] 06/27/2024 8:45 AM EDT Office Visit Adult Medicine [address] [phone] Christiane Holder MD [address] [place] [phone] Scheduled Referrals Name Type Priority Associated Diagnoses Order Schedule Ambulatory referral to Urology Outpatient Referral Routine Prostate cancer (CMS/HCC) 1 Occurrences starting 04/17/2024 until 04/17/2025 documented as of this encounter Visit Diagnoses Diagnosis Prostate cancer (CMS/HCC)- Primary Malignant neoplasm of prostate documented in this encounter Additional Health Concerns Assessment Noted Time PHQ-9 Depression Total Score: 0 01/17/20 24 10:13 PM EST documented as of this encounter Care Teams Manager Language Relationship Specialty Start Date End Date Christiane Holder MD [address] [place] [address] PCP - General 06/03/99 documented as of this encounter
--- OUTSIDE RECORDS SUMMARY | 2024-04-22 09:56 | XMS_ITS | Encounter Summary ---
Author Organization [employer] [address] Care Team Providers Care Sole Layer Name Role Phone Christiane Holder MD Primary Care Provider [phone] Encounter Details Date Type Department Care Team ([facility] st Contact Info) Description 03/24/2024 Telephone Gastroenterology - [address] [place] [phone] Jeri Quintero PA [address] [place] [phone] Social History Tobacco Use Types Packs/Day Years [...] care for your loved ones. For example, children's tutor or elderly care for an older adult? [...] as of this encounter Progress Notes * BEN Calvillo - 03/24/2024 4:52 PM EST Left message for pt that CT was fine. No worrisome findings. Nothing to explain weight loss. Focus on consuming more calories. Try Boost/Ensure. documented in this encounter Plan of Treatment Upcoming Encounters Date Type Department Care Team (Late st Contact Info) Description 06/05/2024 10:30 AM EDT Office Visit Gastroenterology - [address] [place] [phone] Jeri Quintero PA [address] [address] 06/27/2024 8:45 AM EDT Office [place] [facility] [place] [address] [place] [address] Christiane Holder MD [address] [place] [phone] documented as of this encounter Visit Diagnoses Not on filedocumented in this encounter Additional Health Concerns Assessment Noted Time PHQ-9 Depression Total Score: 0 01/17/20 24 10:13 PM EST documented as of this encounter Care Teams Sole Layer Relationship Specialty Start Date End Date Christiane Holder MD [address] [place] [phone] PCP - General 06/03/99 documented as of this encounter
--- OUTSIDE RECORDS SUMMARY | 2024-04-22 09:56 | XMS_ITS | Encounter Summary ---
Author Organization [employer] Address [address] [place] [address] Care Team Providers Care Third Officer Name Role Phone Christiane Holder MD Primary Care Provider [phone] Reason for Referral * Imaging (Routine) - Pending Review Specialty Diagnoses / Procedures Referred By Contac t Referred To Contact Radiology Diagnoses Loss of weight Procedures CT Abdomen Pelvis w Contrast Jeri Quintero PA [address] [address] Phone: tel: fax: [address] [address] Phone: tel: Referral ID Status Reason Start Date Expiration Date V isits Requested Visits Authorized [id number] Pending Review 03/08/2024 03/08/2025 1 1 Reason for Visit * Imaging (Routine) - Pending Review Specialty Diagnoses / Procedures Referred By Contac t Referred To Contact Radiology Diagnoses Loss of weight Procedures CT Abdomen Pelvis w Contrast Jeri Quintero PA [address] [address] Phone: tel: fax: [address] [address] Phone: tel: Referral ID Status Reason Start Date Expiration Date V isits Requested Visits Authorized [id number] Pending Review 03/08/2024 03/08/2025 1 1 Encounter Details Date Type Department Care Team (Latest Contact Info) Description 03/24/2024 8:16 AM EST - 03/24/2024 11:59 PM EST Hospital Encounter [facility] CT Scan [address] [place] [address] Loss of weight Discharge Disposition: Home or Self Care Social History Tobacco Use Types Packs/Day Years [...] care for your loved ones. For example, child care giver or elderly care for an older adult? [...] on file documented as of this encounter Medications at Time of Discharge doxazosin (CARDURA) 2 mg tablet Take 1 Tablet by mouth at bedtime. omeprazole (PriLOSEC) [address] capsule Take 1 Capsule by mouth daily for 360 days. 11/26/2023 11/20/2024 documented as of this encounter Discharge Disposition Disposition Code Departure Means Destination Home or Self Care documented in this encounter Plan of Treatment Upcoming Encounters Date Type Department Care Team (Late st Contact Info) Description 06/05/2024 10:30 AM EDT Office Visit Gastroenterology - [address] [facility] [address] [place] [phone] Jeri Quintero PA [address] [place] [address] 06/27/2024 8:45 AM EDT Office Visit Adult Medicine [address] [phone] Christiane Holder MD [address] [place] [address] documented as of this encounter Procedures Procedure Name Priority Date/Time Associated Diagnosis Comments CT ABDOMEN PELVIS W CONTRAST Routine 03/24/2024 8:29 AM EST Loss of weight documented in this encounter Results * CT Abdomen Pelvis w Contrast (03/24/2024 8:29 AM EST) Anatomical Region Laterality Modality Body Computed Tomogra phy 03/24/2024 9:07 AM EST Impressions 03/24/2024 9:17 AM EST Study limited by absence of fat. No suspicious mass. No etiology for unexplained weight loss demonstrated ?? -------- FINAL REPORT -------- Dictated By: Adam Bella Dictated Date: 03/24/2024 09:07 ET Assigned Physician: Adam Bella Reviewed and Electronically Signed By: Adam Bella Signed Date: 03/24/2024 09:17 ET Workstation ID: [id number] Transcribed By: Self Edit Transcribed Date: 03/24/2024 09:07 ET Narrative 03/24/2024 9:17 AM EST EXAMINATION: CT ABDOMEN/PELVIS WITH IV CONTRAST CLINICAL INFORMATION: Weight loss. ??Unintended weight loss COMPARISON: None ?? TECHNIQUE: Multidetector CT. Helical examination of the abdomen and pelvis. Imaging performed after the IV administration of contrast. Reformatting in the coronal and sagittal planes. DLP: 457 mGy-cm Dose optimization was performed including the use of low-dose iterative reconstruction technique with automatic exposure control based on patient size. Type of contrast: ISOVUE 370 Volume of IV contrast: 75 mL Volume of contrast discarded: 0 mL FINDINGS: The study is limited by almost complete absence of fat and poor definition of the tissue planes. LIVER: The right lobe of the liver measures 15.0 cm. The liver contour is smooth. There are tiny circumscribed nonspecific low attenuating liver lesions which are too small to characterize. There is some focal low attenuation adjacent to the falciform ligament. This can be related to focal fat or a perfusion abnormality. ?? BILIARY TRACT: ??No opaque gallstone. No biliary dilation. SPLEEN: The spleen measures 6.3 cm. No focal abnormality. ?? PANCREAS: The pancreas is not optimally evaluated. There is no definite pancreatic mass. There is no pancreatic ductal dilation. ?? ADRENAL GLANDS: No definite mass. ?? KIDNEYS: No dilation of the intrarenal collecting system. The nephrograms are symmetric. No suspicious renal mass. No opaque renal calculus. ?? GASTROINTESTINAL TRACT: ?Limited assessment. Contrast is present within small and large bowel. There is no definite bowel wall thickening. The stomach is nearly empty and not well evaluated. No definite omental or mesenteric mass. URINARY BLADDER: ??No definite bladder mass demonstrated. The bladder is not well distended. PELVIC VISCERA: ??There are 2 metallic densities in the prostate. Tissue planes not well evaluated. ABDOMINAL WALL: No significant hernia is appreciated. ??Almost no subcutaneous fat. LYMPHOVASCULAR STRUCTURES AND FLUID: There is no abdominal aortic aneurysm. The central aspect of the visceral branches of the aorta enhances. The portal vein enhances. Although limited there is no convincing adenopathy. No significant free intraperitoneal fluid. ?? VISUALIZED LOWER CHEST: The right atrium may be somewhat dilated. The right ventricle may be somewhat dilated. No suspicious abnormality in the visualized lung bases. ?? MUSCULOSKELETAL: No acute or suspicious osseous abnormality. Procedure Note Adam Bella MD - 03/24/2024 EXAMINATION: CT ABDOMEN/PELVIS WITH IV CONTRAST CLINICAL INFORMATION: Weight loss. Unintended weight loss COMPARISON: None TECHNIQUE: Multidetector CT. Helical examination of the abdomen and pelvis. Imaging performed after the IV administration of contrast. Reformatting in the coronal and sagittal planes. DLP: 457 mGy-cm Dose optimization was performed including the use of low-dose iterativereconstruction technique with automatic exposure control based on patientsize. Type of contrast: ISOVUE 370 Volume of IV contrast: 75 mL Volume of contrast discarded: 0 mL FINDINGS: The study is limited by almost complete absence of fat and poor definitionof the tissue planes. LIVER: The right lobe of the liver measures 15.0 cm. The liver contour issmooth. There are tiny circumscribed nonspecific low attenuating liverlesions which are too small to characterize. There is some focal lowattenuation adjacent to the falciform ligament. This can be related tofocal fat or a perfusion abnormality. BILIARY TRACT: No opaque gallstone. No biliary dilation. SPLEEN: The spleen measures 6.3 cm. No focal abnormality. PANCREAS: The pancreas is not optimally evaluated. There is no definitepancreatic mass. There is no pancreatic ductal dilation. ADRENAL GLANDS: No definite mass. KIDNEYS: No dilation of the intrarenal collecting system. The nephrogramsare symmetric. No suspicious renal mass. No opaque renal calculus. GASTROINTESTINAL TRACT: Limited assessment. Contrast is present withinsmall and large bowel. There is no definite bowel wall thickening. The stomach is nearly empty and not well evaluated. No definite omental or mesenteric mass. URINARY BLADDER: No definite bladder mass demonstrated. The bladder isnot well distended. PELVIC VISCERA: There are 2 metallic densities in the prostate. Tissueplanes not well evaluated. ABDOMINAL WALL: No significant hernia is appreciated. Almost nosubcutaneous fat. LYMPHOVASCULAR STRUCTURES AND FLUID: There is no abdominal aorticaneurysm. The central aspect of the visceral branches of the aortaenhances. The portal vein enhances. Although limited there is no convincing adenopathy. No significant free intraperitoneal fluid. VISUALIZED LOWER CHEST: The right atrium may be somewhat dilated. Theright ventricle may be somewhat dilated. No suspicious abnormality in thevisualized lung bases. MUSCULOSKELETAL: No acute or suspicious osseous abnormality. IMPRESSION: Study limited by absence of fat. No suspicious mass. No etiology for unexplained weight loss demonstrated -------- FINAL REPORT -------- Dictated By: Adam Bella Dictated Date: 03/24/2024 09:07 ET Assigned Physician: Adam Bella Reviewed and Electronically Signed By: Adam Bella Signed Date: 03/24/2024 09:17 ET Workstation ID: [id number] Transcribed By: Self Edit Transcribed Date: 03/24/2024 09:07 ET Jeri CONTRERAS IMG CT PROCEDURES Final Resu lt documented in this encounter Visit Diagnoses Diagnosis Loss of weight documented in this encounter Administered Medications Inactive Administered Medications - up to 3 most recent administrations Medication Order MAR Action Action Date Dose Rate Site barium sulfate (READI-CAT 2) 2 % (w/v) suspension 900 mL 900 mL, oral, Once in imaging, Starting on Wed03/24/24 at 0824, For 1 dose Given 03/24/2024 8:25 AM EST 900 mL iopamidoL (ISOVUE-370) 370 mg iodine /mL (76 %) injection 90 mL 90 mL, intravenous, Once in imaging, Starting on Wed03/24/24 at 0824, For 1 dose Given 03/24/2024 8:25 AM EST 75 mL sodium chloride 0.9 % flush 10 mL 10 mL, intravenous, Once, On Wed03/24/24 at 0845, For 1 dose Given 03/24/2024 8:25 AM EST 10 mL documented in this encounter Additional Health Concerns Assessment Noted Time PHQ-9 Depression Total Score: 0 01/17/20 24 10:13 PM EST documented as of this encounter Care Teams Third Officer Relationship Specialty Start Date End Date Christiane Holder MD [address] [place] [address] PCP - General 06/03/99 documented as of this encounter
--- OUTSIDE RECORDS SUMMARY | 2024-04-22 09:56 | XMS_ITS | Clinical Summary ---
Author Organization [employer] Address [address] [place] [address] Care Team Providers Care Health Physicist Name Role Phone Christiane Holder MD Primary Care Provider [phone] Allergies Active Allergy Reactions Criticality Noted Date Comments Ibuprofen 02/23/2005 Medications omeprazole (PriLOSEC) [address] capsule Take 1 Capsule by mouth daily for 360 days. 11/26/2023 Active doxazosin (CARDURA) 2 mg tablet Take 1 Tablet by mouth at bedtime. Active Active Problems Problem Noted Date Diagnosed Date Macrocytosis 11/02/2022 Prostate cancer 04/20/2022 Elevated PSA 05/22/2021 Erectile dysfunction 05/22/2021 Hyperglycemia 09/14/2014 Leukocytopenia 11/13/2011 BPH (benign prostatic hyperplasia) 06/21/2009 Overview (12/11/2023): Follows with Dr. Cordero Leuclayla 05/13/2006 Esophageal reflux 05/10/2006 Overview (12/11/2023): Per pt, after discussion with GI specialist, pt was OKed to stop PPI/acid control after stopping NSIDS. Dyspepsia and disorder of function of stomach Encounters Date Type Department Care Team Description 04/17/2024 Telephone Adult [address] [phone] Christiane Holder MD Referral (Fax requesting an insurance referral - urology) 03/24/2024 8:16 AM EST - 03/24/2024 11:59 PM EST Hospital Encounter [facility] CT Scan [address] [place] [address] Loss of weight Discharge Disposition: Home or Self Care 03/24/2024 Telephone Gastroenterology - [address] [phone] Jeri Quintero PA 03/20/2024 Telephone Gastroenterology - [address] [address] Devika Agudelo [place] 03/08/2024 12:40 PM EST Office Visit Gastroenterology - [address] [address] Jeri Quintero PA Borborygmi (Primary Dx); Loss of weight; Flatulence from Last 3 Months Immunizations Name Administration Dates Next Due COVID-19 (Moderna/Spikevax) 12yo and older 11/28/2022 Influenza Quadravalent, MDCK , 0.5ml, preservative free (Flucelvax) 6mo and older 10/17/2018 Influenza trivalent, 0.5mL ( Fluad) 65yo and older 11/26/2023,11/02/2022,11/30/2021,2020,03/02/2016,01/15/2015,03/05/2014 Pfizer (ages 12 & older) Biv alent, COVID-19 11/15/2021 Pfizer SARS-CoV-2 COVID-19, mRNA, LNP-S, preservative free 12/15/2020,06/01/2020,05/05/2020 Pneumococcal conjugate 20 va lent (Prevnar 20, PCV 20) 2mo and older 11/02/2022 Td Tetanus diptheria (Tdvax) 7yo and older 10/05/2016 Tdap Tetanus diptheria acell ular pertussis (Boostrix; Adacel) 7yo and older 05/10/2006 Surgical History Surgery Date Site/Laterality Comments OTHER SURGICAL HISTORY 11/06/2021 PROCEDURE: NC BIOPSY PROSTATE INCISIONAL ANY APPROACH; COMMENT: dr. magana Medical History Medical History Date Comments Esophageal reflux 05/10/2006 DX:Esophageal reflux Other decreased white blood cell count 05/13/2006 DX:Other decreased white blood cell count BPH (benign prostatic hyperplasia) 06/21/2009 DX:BPH (benign prostatic hyperplasia) Leukocytopenia 11/13/2011 DX:Leukocytopeni a Hyperglycemia 09/14/2014 DX:Hyperglycemia Family History Medical History Relation Name Comments Diabetes Mother Hypertension Mother Diabetes Sister 1 Other: congenital heart disease Sister 2 Relation Name Status Comments Mother Sister 1 Sister 2 Sister 3 Social History Tobacco Use Types Packs/Day Years Used Date Smoking Tobacco: Never Smokeless Tobacco: Never Tobacco Cessation:Counseling Given: Not Answered Alcohol Use Standard Drinks/Week Comments Yes 0 [...] care for your loved ones. For example, summer child caregiver or elderly care for an older adult? [...] on file Sexual Orientation Not on file Obstetrics History Last Filed Vital Signs Vital Sign Reading Time Taken Comments Blood Pressure 112/58 01/18/2024 9:13 AM EST Pulse 64 01/18/2024 9:13 AM EST Temperature 36.1 ??C (96.9 ??F) 01/18/2024 9:13 AM ES T Respiratory Rate 12 01/18/2024 9:13 AM EST Oxygen Saturation - - Inhaled Oxygen Concentration - - Weight 59.4 kg (131 lb) 03/08/2024 12:40 PM EST Height 172.7 cm (5' 8 ) 03/08/2024 12:40 PM EST Body Mass Index 19.92 03/08/2024 12:40 PM EST Plan of Treatment Upcoming Encounters Date Type Department Care Team (Late st Contact Info) Description 06/05/2024 10:30 AM EDT Office Visit Gastroenterology - [address] [facility] [address] [place] [phone] Jeri Quintero PA [address] [place] [address] 06/27/2024 8:45 AM EDT Office Visit Adult Medicine [place] [id number] [place] [address] Christiane Holder MD [address] [place] [address] Health Maintenance Due Date Last Done Comments Zoster Vaccines (1 of 2) 1974 COVID-19 Vaccine ( season) 2023 11/28/2022, 11/15/2021, 12/15/2020, Additional history exists Depression Screening 01/16/2025 01/17/2024 Social Influencers of Health Screening 01/16/2025 01/17/2024 Falls Risk Assessment 01/17/2025 01/18/2024 Colorectal Cancer Screening: Colonoscopy 03/27/2026 03/27/2016 DTaP,Tdap,and Td Vaccines (3 - Td or Tdap) 10/05/2026 10/05/2016, 05/10/2006 Cholesterol Screening (Lipid Panel) 11/25/2028 11/26/2023, 11/26/2023 RSV Immunization Patients 60+ Years Old (1 - 1-dose 75+ series) 2029 Hepatitis C Screening Completed 12/09/2021 Pneumococcal Vaccine: 50+ Years Completed 11/02/2022 Influenza Vaccine Completed 11/26/2023, , 11/30/2021, Additional history exists HIB Vaccines Aged Out No longer eligi ble based on patient's age to complete this topic HPV Vaccines Aged Out No longer eligi ble based on patient's age to complete this topic Hepatitis A Vaccines Aged Out No long er eligible based on patient's age to complete this topic Hepatitis B Vaccines Aged Out No long er eligible based on patient's age to complete this topic IPV Vaccines Aged Out No longer eligi ble based on patient's age to complete this topic MMR Vaccines Aged Out No longer eligi ble based on patient's age to complete this topic Meningococcal ACWY Vaccine Aged Out N o longer eligible based on patient's age to complete this topic Meningococcal B Vacine Aged Out No lo nger eligible based on patient's age to complete this topic RSV Immunization Patients Under 20 months Aged Out No longer eligible based on patient's age to complete this topic Varicella Vaccines Aged Out No longer eligible based on patient's age to complete this topic Procedures Procedure Name Priority Date/Time Associated Diagnosis Comments CT ABDOMEN PELVIS W CONTRAST Routine 03/24/2024 8:29 AM EST Loss of weight IMMUNOGLOBULIN IGA Routine 03/08/2024 1: 31 PM EST Borborygmi Loss of weight Flatulence ENDOMYSIAL ANTIBODY, IGA Routine 03/08/2024 1:31 PM EST Borborygmi Loss of weight Flatulence TISSUE TRANSGLUTAMINASE, IGA Routine 03/08/2024 1:31 PM EST Borborygmi Loss of weight Flatulence LIPID PANEL Routine 11/26/2023 HEPATITIS C SCREENING Routine 12/09/2021 COLONOSCOPY Routine 03/27/2016 from Last 3 Months or Most Recently Relevant to Health Maintenance Results * CT Abdomen Pelvis w Contrast [...] Signed Date: 03/24/2024 09:17 ET Workstation ID: [id number] Transcribed By: Self Edit Transcribed Date: 03/24/2024 [...] Signed Date: 03/24/2024 09:17 ET Workstation ID: [id number] Transcribed By: Self Edit Transcribed Date: 03/24/2024 09:07 ET [address]i CONTR[address] IMG CT PROCEDURES Final Resu lt * Endomysial antibody, IgA (03/08/2024 1:31 PM EST) Endomysial IgA Negative Negative 03/09/2024 12:03 PM EST [facility] Blood Venous blood specimen / Unknown Venipuncture / Unknown 03/08/2024 1:31 PM EST 03/08/2024 4:06 PM EST Jeri CONTRERAS LAB BLOOD ORDERABLES Final R esult Performing Organization Address City/[facility]/ZIP Co de Phone Number [facility] [address] [place] [address], [place] [phone] * Tissue transglutaminase, IgA (03/08/2024 1:31 PM EST) Pathologist [facility] Tissue Transglutaminase Ab, IgA Quant 1 <4 unit/mL LAB CHEMISTRY METHOD 03/16/2024 2:46 PM EST [facility] Tissue Transglutaminase Ab, IgA Negative Negative LAB CHEMISTRY METHOD 03/16/2024 2:46 PM EST [facility] Blood Venous blood specimen / Unknown Venipuncture / Unknown 03/08/2024 1:31 PM EST 03/08/2024 4:06 PM EST Jeri CONTRERAS LAB BLOOD ORDERABLES Final R esult [facility] [address] [place] [address], [place] [phone] * Immunoglobulin IgA (03/08/2024 1:31 PM EST) IgA 247 61 - 348 mg/dL LAB CHEMISTRY METHOD 03/08/2024 4:44 PM EST [facility] Blood Venous blood specimen / Unknown Venipuncture / Unknown 03/08/2024 1:31 PM EST 03/08/2024 4:06 PM EST Jeri CONTRERAS LAB BLOOD ORDERABLES Final R esult [facility] [address] [place] [address], [place] [phone] * Lipid panel (11/26/2023) LDL/HDL Ratio 2 0 - 4 Triglycerides 34 0 - 150 mg/dL Cholesterol 154 0 - 200 mg/dL HDL 80 >=40 mg/dL LDL Cholesterol 68 0 - 100 mg/dL Blood Venous blood specimen / Unknown Historical Provider LAB BLOOD ORDERABLES Janine l Result * Hepatitis C Screening (12/09/2021) Hepatitis C Screening Abstracted Historical Provider HEALTH MAINTENANCE Final Result * Colonoscopy (03/27/2016) Pathologist [facility] Colonoscopy No interpretation , Abstracted Anatomical Region Laterality Modality Other Historical Provider HEALTH MAINTENANCE Final Result from Last 3 Months or Most Recently Relevant to Health Maintenance Insurance [facility] Care Teams Health Physicist Relationship Specialty Start Date End Date Christiane Holder MD [address] [place] [address] PCP - General 06/03/99
[2024-04-22 12:07] LABS: Prostate Specific Antigen 0.21 ng/mL (<0.05-4.0)
== END 2024-04-22 09:55 | disposition home or self-care (01) ==
LOC: HO.HMGCLDS 09:54
PROVIDERS: PCP Internal Medicine; Visit Provider Urology
DX: Z12.5 Encounter for screening for malignant neoplasm of prostate (principal); C61 Malignant neoplasm of prostate
CPT/HCPCS: 36415; 84153

== ENCOUNTER 2024-05-05 08:26 | Outpatient (AMB) | payer BC, SELFPAY ==
--- NOTE | 2024-05-05 08:26 | MHC.OFFVIS ---
Intake Visit Reasons: 6m/PSA Intake Note: Patient is Present for a telehealth visit 6 month/PSA Urology Medication: Doxazosin Antibiotic Allergies:None Blood Thinners: None Supervisor Fitting Required: No Accompanied by: Self / Same As Patient Allergies ibuprofen Allergy (Unknown, Verified 05/05/24 08:26) unknown HPI Comments Details: Mr Frias is a very pleasant [place] male. He is a patient of Dr Holder. He is seen for the following urologic conditions. - erectile dysfunction - prostate cancer Telemedicine Evaluation 15 min Consultation Doximity Beni Video PSA stable, testosterone recovered Discussed dietary impact for prostate cancer Minimal data to support changes beyond general recommendations to have a plant forward diet PSA 10/31 <0.1, 03/03 <0.1 T 470, 06/01 <0.1, 11/01 0.12, 05/02 0.2 Prostate cancer - Grade Group 3 - EXBRT 07/31 [facility]+6m hormones Initial therapy radiation with hormone therapy 07/31 [facility] Dr Johnson, 7000Gy 28 fractions - SpaceOAR placement prior Adenocarcinoma of the prostate - T1c N0 M0, [place] score 4+3, Grade Group 3, PSA at Diagnosis 11 - NCCN unfavorable intermediate risk group Prostate cancer was diagnosed Dr Jefferson Diagnosis was reached by - needle biopsy - elevated PSA 11 - 40 g Date: 10/30 12 Core biopsy Positive Biopsies: 4 Negative Biopsies: 8 - (%) Positive: Locations: Left base lateral Marva 3 + 3 10%, left mid lateral [place] 3 + 3 5%, left mid medial 4+3 30%, left apex lateral 3+4 15% TNM Classification of Malignant Tumours (TNM) - T1c Staging Imaging - 01/28 MRI organ confined small area of diffusion restriction 5mm left lateral apex Associated conditions erectile dysfunction yes Elevated PSA Repeat PSA 08/28 - 4.2 free 7%, 12/29 6.9, 09/29 11.3 Normal EZRA 2+ Erectile dysfunction: Good response with penile pump and restriction band Would like to continue with this He presents today for for continued evaluation and management of erectile dysfunction - use high dose PD 5. Symptoms have been present for/since 2011. Current treatment includes Viagra/sildenafil. Prior therapies include oral medications. At this time he experiences erections are partial and adequate for vaginal penetration - although gradually upcoming week. Nocturnal erections do not occur. Currently they are in a stable relationship. Recent labs included a PSA (prostate-specific antigen) 2015 2.3, 2017 3.9, 11/26 4.2. Overall he is satisfied with the current management. Therapeutic plan includes maintaining current therapy. [facility] Medical History Prostate cancer Erectile dysfunction Benign prostatic hyperplasia with lower urinary tract symptoms Nocturia Elevated PSA Surgical History H/O colonoscopy History of surgery Hx of prostate biopsy Social History Are you a primary care aid to a significant other at home: No Do you presently have visiting nurse or other home services: No Patient Tobacco Use Status: Never used Tobacco Telehealth Telehealth Telehealth Platform: [employer] Location of provider rendering services: practice address Location of patient: address on file Patient Identification confirmed using: Name, : Yes Telehealth method: video Patient verbally consented to treatment: Yes Patient verbally consented to billing insurance company: Yes Patient informed of any privacy concerns related to visit: Yes Minutes spent on Phone/Video with Pt.: 15 Assessment & Plan Assessment & Plan (1) Prostate cancer: Comment: Low volume, high risk, clinically confined Code(s): C61 - Malignant neoplasm of prostate Category: Medical (2) Erectile dysfunction: Code(s): N52.9 - Male erectile dysfunction, unspecified Category: Medical Qualifiers: Post-procedural erectile dysfunction type: following radiation therapy Plan Six-month follow-up PSA office Orders: Orders Prostate Specific Antigen 6 Months C61 - Malignant neoplasm of prostate Patient Instructions: This note is constructed using voice recognition software. While every effort has been made to ensure accuracy clamshell engineer errors may have been included. Imaging studies, laboratory and physical exam results were discussed and reviewed in detail. No major barriers to patient understanding were identified. An opportunity to ask questions regarding the treatment plan was provided. All questions were answered. The patient expressed understanding and agreement with the above treatment plan. The patient is aware they should contact our office by phone for worsening of their current condition or the appearance of new urologic symptoms. Compliance is encouraged with any medications and followup testing that is ordered. It is a privilege to participate in the urologic care of your patient. If you have any questions or concerns regarding treatment for the above conditions, or other urologic issues, please do not hesitate to contact me. The office telephone contact is [phone]. Sincerely, Dr Luis Jefferson MD, [facility] - Urology Compassionate Specialist Care for the Genitourinary System Coding Level of Care Code Tele Est Pt Level 3 (62670) Complex EM visit Add On G2211 Diagnoses Prostate cancer C61 Erectile dysfunction N52.9 Post-procedural erectile dysfunction type: following radiation therapy
== END 2024-05-05 09:31 | disposition home or self-care (01) ==
LOC: HO.HUSH 08:26
PROVIDERS: PCP Internal Medicine; Visit Provider Urology
DX: C61 Malignant neoplasm of prostate (principal); N52.9 Male erectile dysfunction, unspecified
CPT/HCPCS: 99213

== ENCOUNTER → 2024-05-05 08:26 | Outpatient (BNVA) | payer BC, SELFPAY | PROVIDERS: PCP Internal Medicine; Visit Provider Urology ==

== ENCOUNTER 2024-10-21 08:26 | Outpatient (REF) | payer BC, SELFPAY ==
--- OUTSIDE RECORDS SUMMARY | 2024-10-21 08:30 | XMS_ITS ---
[facility] Organization [facility] Care Team Organization Name Specialty Phone Email Start Date End Da te [facility] 12/16/2021 09/27/2023
--- OUTSIDE RECORDS SUMMARY | 2024-10-21 08:30 | XMS_ITS | Clinical Summary ---
Author Organization [facility] Address [address] [place] [address] Care Team Providers Care Filler Shredder Machine Name Role Phone Christiane Holder MD Primary Care Provider [phone] Allergies Active Allergy Reactions Criticality Noted Date Comments Ibuprofen 02/23/2005 Medications Medication Sig Dispensed Refills Start Date End Date Status finasteride (PROSCAR) 5 MG tablet 0 11/13/2021 Active hydrOXYzine (ATARAX) 10 MG tablet TAKE 1 TABLET BY MOUTH TWICE DAILY NEEDED FOR ITCHING 0 12/09/2021 Active nystatin-triamcinolon e (MYCOLOG II) cream APPLY THIN LAYER TO AFFECTED AREA TWICE DAILY FOR 2 WEEKS 0 12/09/2021 Active Active Problems No known active problems Social History Tobacco Use Types Packs/Day Years Used Date Smoking Tobacco: Never Passive Smoke Exposure: Never Smokeless Tobacco: Never Tobacco Cessation:Counseling Given: Not Answered Alcohol Use Standard Drinks/Week Comments Never 0 (1 standard drink = 0.6 oz pur e alcohol) Sex and Gender Information Value Date Recorded Sex Assigned at Not on file Gender Identity Not on file Sexual Orientation Not on file Job Start Date Occupation Industry Not on file Not on file Not on file Last Filed Vital Signs Vital Sign Reading Time Taken Comments Blood Pressure 149/75 12/22/2021 1:09 PM EST Pulse 66 12/22/2021 1:09 PM EST Temperature 36.8 C (98.3 F) 12/22/2021 1:09 PM EST Respiratory Rate - - Oxygen Saturation 100% 12/22/2021 1:09 PM EST Inhaled Oxygen Concentration - - Weight 65.8 kg (145 lb) 12/22/2021 1:09 PM EST Height 172.7 cm (5' 8 ) 12/22/2021 1:09 PM EST Body Mass Index 22.05 12/22/2021 1:09 PM EST Plan of Treatment Health Maintenance Due Date Last Done Comments Hepatitis C Screening 1955 Depression Screening 1966 Preventative Health Evaluation 1972 Colon Cancer Screening (Colonoscopy) 12/20/1999 Shingrix-Zoster Vaccine (1 of 2) 2004 DTap / Tdap / Td (2 - Td or Tdap) 05/10/2016 05/10/2006 Fall Risk Assessment 12/20/2019 Pneumococcal Vaccine (1 of 1 - PCV) 12/20/2019 COVID-19 Vaccine (4 - season) 2024 12/15/2020, 06/01/2020, 05/05/2020 Influenza Vaccine (#1) 2024 2, 01/08/2021, 10/17/2018, Additional history exists RSV Adult > 60+ Yrs or (1 - 1-dose 75+ series) 2029 Hepatitis B Vaccines Aged Out No long er eligible based on patient's age to complete this topic RSV Ped < 20 months Aged Out No longe r eligible based on patient's age to complete this topic Care Teams Filler Shredder Machine Relationship Specialty Start Date End Date Christiane Holder MD PCP - General Internal Medicine 12/10/21
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
[2024-10-21 11:57] LABS: Prostate Specific Antigen 0.17 ng/mL (<0.05-4.0)
== END 2024-10-21 08:27 | disposition home or self-care (01) ==
LOC: HO.HMGCLDS 08:26
PROVIDERS: PCP Internal Medicine; Visit Provider Urology
DX: C61 Malignant neoplasm of prostate (principal); Z12.5 Encounter for screening for malignant neoplasm of prostate
CPT/HCPCS: 36415; 84153

== ENCOUNTER 2024-11-10 08:15 | Outpatient (AMB) | payer BC, SELFPAY ==
--- NOTE | 2024-11-10 08:15 | MHC.OFFVIS ---
Intake Visit Reasons: 6m/PSA/PVR Intake Note: Patient is Present for a 6 month follow up Urology Medication: Doxazosin Antibiotic Allergies:None Blood Thinners: None Labs done :10/21/24 PSA 0.17 Double Back Operator Required: No Accompanied by: Self / Same As Patient Allergies ibuprofen Allergy (Unknown, Verified 11/10/24 08:17) unknown HPI Comments Details: Mr Frias is a very pleasant Citizen [place] male. He is a patient of Dr Holder. He is seen for the following urologic conditions. - erectile dysfunction - prostate cancer PSA continues to remain stable 2 years since completing EXBRT Plan surveillance q6 months until year 5 Discussed dietary impact for prostate cancer Minimal data to support changes beyond general recommendations to have a plant forward diet PSA 10/31 <0.1, 03/03 <0.1 T 470, 06/01 <0.1, 11/01 0.12, 05/02 0.2, 11/02 0.2 Remains on doxazosin for urinary control Nocturia times Prostate cancer - Grade Group 3 - EXBRT 07/31 [facility]+6m hormones Initial therapy radiation with hormone therapy 07/31 Dr Johnson, 7000Gy 28 fractions - SpaceOAR placement prior Adenocarcinoma of the prostate - T1c N0 M0, [place] score 4+3, Grade Group 3, PSA at Diagnosis 11 - NCCN unfavorable intermediate risk group Prostate cancer was diagnosed Dr Jefferson Diagnosis was reached by - needle biopsy - elevated PSA 11 - 40 g Date: 10/30 12 Core biopsy Positive Biopsies: 4 Negative Biopsies: 8 - (%) Positive: Locations: Left base lateral [place] 3 + 3 10%, left mid lateral [place] 3 + 3 5%, left mid medial 4+3 30%, left apex lateral 3+4 15% TNM Classification of Malignant Tumours (TNM) - T1c Staging Imaging - 01/28 MRI organ confined small area of diffusion restriction 5mm left lateral apex Associated conditions erectile dysfunction yes Elevated PSA Repeat PSA 08/28 - 4.2 free 7%, 12/29 6.9, 09/29 11.3 Normal EZRA 2+ Erectile dysfunction: Good response with penile pump and restriction band Would like to continue with this He presents today for for continued evaluation and management of erectile dysfunction - use high dose PD 5. Symptoms have been present for/since 2011. Current treatment includes Viagra/sildenafil. Prior therapies include oral medications. At this time he experiences erections are partial and adequate for vaginal penetration - although gradually upcoming week. Nocturnal erections do not occur. Currently they are in a stable relationship. Recent labs included a PSA (prostate-specific antigen) 2015 2.3, 2017 3.9, 11/26 4.2. Overall he is satisfied with the current management. Therapeutic plan includes maintaining current therapy. PFSH Medical History Prostate cancer Erectile dysfunction Benign prostatic hyperplasia with lower urinary tract symptoms Nocturia Elevated PSA Surgical History H/O colonoscopy History of surgery Hx of prostate biopsy Social History Are you a primary pet caretaker to a significant other at home: No Do you presently have visiting nurse or other home services: No Patient Tobacco Use Status: Never used Tobacco Review of Systems Const Denies chills and Denies fever(s) Card Reports no additional complaints and Denies syncope Resp Denies cough GI Denies abdominal pain and Denies heartburn Reports as per HPI and Denies change in libido Neuro Denies syncope Psych Denies change in libido Endo Denies change in libido Physical Exam Const General: cooperative, healthy appearing, comfortable and no acute distress Orientation/consciousness: patient oriented x3 HEENT Face and sinus: Yes normal facial exam Mouth: moist mucous membranes Neck Neck: Yes normal visual inspection, Yes full ROM and Yes trachea midline Chest Chest palpation & inspection: normal inspection of the chest Resp Effort & Inspection: normal respiratory effort, able to speak in complete sentences and no respiratory distress GI Inspection: Yes normal to inspection Back/Spine/Pelvis Cervical Spine: normal cervical lordosis Thoracic/Lumbar Spine: thoracic and lumbar spine normal to inspection Skin General skin exam: no rashes or lesions noted Neuro General: patient oriented x3, gait normal, tone normal and moves all extremities Extrem General: Yes normal to inspection and Yes capillary refill normal Assessment & Plan Assessment & Plan (1) Prostate cancer: Comment: Low volume, high risk, clinically confined Code(s): C61 - Malignant neoplasm of prostate Category: Medical (2) Benign prostatic hyperplasia with lower urinary tract symptoms: Code(s): N40.1 - Benign prostatic hyperplasia with lower urinary tract symptoms Category: Medical Plan Six-month follow-up check PSA Orders: Orders Prostate Specific Antigen 6 Months C61 - Malignant neoplasm of prostate Patient Instructions: This note is constructed using voice recognition software. While every effort has been made to ensure accuracy marketing forecaster errors may have been included. Imaging studies, laboratory and physical exam results were discussed and reviewed in detail. No major barriers to patient understanding were identified. An opportunity to ask questions regarding the treatment plan was provided. All questions were answered. The patient expressed understanding and agreement with the above treatment plan. The patient is aware they should contact our office by phone for worsening of their current condition or the appearance of new urologic symptoms. Compliance is encouraged with any medications and followup testing that is ordered. It is a privilege to participate in the urologic care of your patient. If you have any questions or concerns regarding treatment for the above conditions, or other urologic issues, please do not hesitate to contact me. The office telephone contact is [phone]. Sincerely, Dr Luis Jefferson MD, [facility] - Urology Compassionate Specialist Care for the Genitourinary System Coding Level of Care Code Est Pt Level 3 (81658) Complex EM visit Add On G2211 Diagnoses Prostate cancer C61 Benign prostatic hyperplasia with lower urinary tract symptoms N40.1
--- OUTSIDE RECORDS SUMMARY | 2024-11-10 08:29 | XMS_ITS | Clinical Summary ---
Author Organization [facility] Address [address] [place] [address] Care Team Providers Care Bottler Name Role Phone Christiane Holder MD Primary Care Provider [phone] Allergies Active Allergy Reactions Criticality Noted Date [...] age to complete this topic Care Teams Bottler Relationship Specialty Start Date End Date Christiane Holder MD PCP - General Internal Medicine 12/10/21
--- OUTSIDE RECORDS SUMMARY | 2024-11-10 08:29 | XMS_ITS | Clinical Summary ---
Author Organization [facility] Address [address] [place] [address] Care Team Providers Care Commercial Or Institutional Cleaner Name Role Phone Christiane Holder MD Primary Care Provider [phone] Allergies Active Allergy Reactions Criticality Noted Date [...] 9:30 AM EDT Office Visit Adult Medicine [address] [phone] Christiane Holder MD Primary insomnia (Primary Dx); Hyperglycemia; Leg cramps; Weight loss; Prostate cancer (CMS/HCC V24, CMS/HCC V28); Anemia, unspecified type; Leukopenia, unspecified type from Last 3 Months Immunizations Immunization Administration Dates Next Due COVID-19 (Moderna/Spikevax) 11yo [...] Site/Laterality Comments OTHER SURGICAL HISTORY 11/06/2021 PROCEDURE: [place] BIOPSY PROSTATE INCISIONAL ANY APPROACH; COMMENT: dr. [...] your loved ones. For example, child care associate teacher or elderly care for an older adult? [...] Date Recorded What is your living situation? Unrecognized valu e 01/17/2024 Interpersonal Safety Answer Date Record ed Physical Abuse Unrecognized value 06/07/2024 Verbal Abuse Unrecognized value 06/07/2024 Sex and Gender Information Value Date [...] 9:45 AM EST Office Visit Adult Medicine [facility] [place] [address] [place], [place] [phone] Christiane Holder MD [address] [place], [place] Health Maintenance Due Date Last Done Comments [...] Procedure Name Priority Date/Time Associated Diagnosis Comments EXTERNAL CLINICAL LAB 10/21/2024 CBC WITH AUTO DIFFERENTIAL Routine 09/15/2024 8:56 [...] weight [place]gmi Flatulence LIPID PANEL Routine 11/26/2023 HEPATITIS C SCREENING Routine 12/09/2021 from Last 3 Months or Most Recently Relevant to Health Maintenance Results * External clinical lab (10/21/2024) us Provider [facility] LAB BLOOD ORDERABLES Fin al Result * Thyroid stimulating hormone with reflex to free t4 and free t3 (09/15/2024 8:56 AM EDT) TSH 0.88 0.40 - 4.00 mcIU/mL LAB CHEMISTRY METHOD 09/15/2024 2:31 PM EDT [facility] Blood Venous blood specimen / Unknown Venipuncture / Unknown 09/15/2024 8:56 AM EDT 09/15/2024 8:56 AM EDT Christiane Holder MD LAB BLOOD ORDERABLES Final Resul t [facility] [address] [place] [address], [place] [phone] * (ABNORMAL) CBC auto differential (09/15/2024 8:56 AM EDT) [facility] WBC 2.0(L) 4.8 - 10.8 K/mcL LAB HEMETOLOGY METHOD 09/15/2024 10:[address] [facility] RBC 3.50(L) 4.50 - 5.50 M/mcL LAB HEMETOLOGY METHOD 09/15/2024 10:[address] [facility] Hemoglobin 11.5(L) 13.5 - 17.5 g/dL LAB HEMETOLOGY METHOD 09/15/2024 10:[address] [facility] Hematocrit 35.7(L) 42.0 - 54.0 % LAB HEMETOLOGY METHOD 09/15/2024 10:[address] [facility] MCV 102.9(H) 79.0 - 98.0 FL LAB HEMETOLOGY METHOD 09/15/2024 10:[address] [facility] MCH 33.1(H) 27.0 - 32.0 pcg LAB HEMETOLOGY METHOD 09/15/2024 10:[address] [facility] MCHC 32.2 32.0 - 37.0 g/dL LAB HEMETOLOGY METHOD 09/15/2024 10:[address] [facility] RDW 11.9 11.0 - 15.0 % LAB HEMETOLOGY METHOD 09/15/2024 10:[address] [facility] Platelets 166 130 - 400 K/mcL LAB HEMETOLOGY METHOD 09/15/2024 10:[address] [facility] MPV 11.3(H) 7.0 - 11.0 FL LAB HEMETOLOGY METHOD 09/15/2024 10:[address] [facility] NRBC 0.0 <1.0 % LAB HEMETOLOGY METHOD 09/15/2024 10:[address] [facility] NRBC Absolute 0.00 <0.10 K/mcL LAB HEMETOLOGY METHOD 09/15/2024 10:[address] [facility] Neutrophils Relative 49.0 % LAB HEMETOLOGY METHOD 09/15/2024 10:[address] [facility] Lymphocytes Relative 28.3 % LAB HEMETOLOGY METHOD 09/15/2024 10:[address] [facility] Monocytes Relative 17.7 % LAB HEMETOLOGY METHOD 09/15/2024 10:[address] [facility] Eosinophils Relative 4.0 % LAB HEMETOLOGY METHOD 09/15/2024 10:[address] [facility] Basophils Relative 0.5 % LAB HEMETOLOGY METHOD 09/15/2024 10:[address] [facility] Immature Granulocytes Relative 0.5 % LAB HEMETOLOGY METHOD 09/15/2024 10:[address] [facility] Neutrophils Absolute 0.97(L) 1.50 - 7.00 K/mcL LAB HEMETOLOGY METHOD 09/15/2024 10:[address] [facility] Lymphocytes Absolute 0.56(L) 1.00 - 5.00 K/mcL LAB HEMETOLOGY METHOD 09/15/2024 10:[address] [facility] Monocytes Absolute 0.35 0.20 - 1.00 K/mcL LAB HEMETOLOGY METHOD 09/15/2024 10:[address] [facility] Eosinophils Absolute 0.08 0.00 - 0.50 K/mcL LAB HEMETOLOGY METHOD 09/15/2024 10:[address] [facility] Basophils Absolute 0.01 0.00 - 0.20 K/mcL LAB HEMETOLOGY METHOD 09/15/2024 10:[address] [facility] Immature Granulocytes Absolute 0.01 0.00 - 0.03 K/mcL LAB HEMETOLOGY METHOD 09/15/2024 10:51 AM EDT [facility] Blood Venous blood specimen / Unknown Venipuncture / Unknown 09/15/2024 8:56 AM EDT 09/15/2024 8:56 AM EDT us Christiane Holder MD LAB BLOOD ORDERABLES Final Resul t Performing Organization Address City/[facility]/ZIP Co de Phone Number [facility] [address] [place] [address], [place] [phone] * Hemoglobin A1c (09/15/2024 8:56 AM EDT) Hemoglobin A1C 4.6 <6.5 % LAB CHEMISTRY METHOD 09/15/2024 2:14 PM EDT [facility] Mean Bld Glu Estim. 85 mg/dL LAB CHEMISTRY METHOD 09/15/2024 2:14 PM EDT [facility] Blood Venous blood specimen / Unknown Venipuncture / Unknown 09/15/2024 8:56 AM EDT 09/15/2024 8:56 AM EDT us Christiane Holder MD LAB BLOOD ORDERABLES Final Resul t Performing Organization Address [facility]/ZIP Co de Phone Number [facility] [address] [place] [address], [place] [phone] * Comprehensive metabolic panel (09/15/2024 8:56 AM EDT) Pathologist [facility] Sodium 139 133 - 145 mmol/L LAB CHEMISTRY METHOD 09/15/2024 1:16 PM EDT [facility] Potassium 4.0 3.5 - 5.5 mmol/L LAB CHEMISTRY METHOD 09/15/2024 1:16 PM EDT [facility] Chloride 102 96 - 110 mmol/L LAB CHEMISTRY METHOD 09/15/2024 1:16 PM EDT [facility] CO2 29 21 - 32 mmol/L LAB CHEMISTRY METHOD 09/15/2024 1:[address] [facility] Anion Gap 8 3 - 11 LAB CHEMISTRY METHOD 09/15/2024 1:[address] [facility] Glucose 88 70 - 100 mg/dL LAB CHEMISTRY METHOD 09/15/2024 1:[address] [facility] BUN 16 5 - 25 mg/dL LAB CHEMISTRY METHOD 09/15/2024 1:[address] [facility] Creatinine 0.80 0.70 - 1.30 mg/dL LAB CHEMISTRY METHOD 09/15/2024 1:[address] [facility] eGFR 96 >=60 mL/min/1. 73m2 LAB CHEMISTRY METHOD 09/15/2024 1:[address] [facility] Comment:Calculation based on the Chronic Kidney Disease Epidemiology Collaboration (CKD-EPI) equation refit without adjustment for race. BUN/Creatinine Ratio 20.0 LAB CHEMISTRY METHOD 09/15/2024 1:[address] [facility] Calcium 9.0 8.5 - 10.5 mg/dL LAB CHEMISTRY METHOD 09/15/2024 1:[address] [facility] AST (SGOT) 26 10 - 42 unit/L LAB CHEMISTRY METHOD 09/15/2024 1:[address] [facility] ALT (SGPT) 22 10 - 60 unit/L LAB CHEMISTRY METHOD 09/15/2024 1:[address] [facility] Alkaline Phosphatase 66 42 - 121 unit/L LAB CHEMISTRY METHOD 09/15/2024 1:[address] [facility] Total Protein 7.0 6.0 - 8.0 g/dL LAB CHEMISTRY METHOD 09/15/2024 1:[address] [facility] Albumin 3.9 3.2 - 5.0 g/dL LAB CHEMISTRY METHOD 09/15/2024 1:[address] [facility] Total Bilirubin 1.2 0.0 - 1.4 mg/dL LAB CHEMISTRY METHOD 09/15/2024 1:16 PM EDT [facility] Blood Venous blood specimen / Unknown Venipuncture / Unknown 09/15/2024 8:56 AM EDT 09/15/2024 8:56 AM EDT us Christiane Holder MD LAB BLOOD ORDERABLES Final Resul t [facility] [address] [place] [address], * COLONOSCOPY Anesthesia - MAC; [facility] ENDOSCOPY (06/07/2024 11:08 AM EDT) Anatomical Region Laterality Modality Other 06/07/2024 10:4 5 AM EDT Impressions 06/07/2024 11:09 AM EDT - Non-bleeding internal hemorrhoids. - The examination was otherwise normal on direct and retroflexion views. - No specimens collected. Recommendation: - Perform an upper GI endoscopy today. - Repeat colonoscopy in 10 years for surveillance. Narrative 06/07/2024 11:09 AM EDT [facility] Patient Name: Jose Frias Procedure Date: [...] retroflexion views. Procedure Code(s): --- Professional --- 48336, Colonoscopy, flexible; diagnostic, including collection of specimen(s) by brushing or washing, when performed (separate procedure) Diagnosis Code(s): --- Professional --- R19.4, Change in bowel habit R19.5, Other fecal abnormalities R63.4, Abnormal weight loss CPT copyright 2020 [employer]. All rights reserved. The codes documented in this report are preliminary and upon continuous improvement coordinator review may be revised to meet current compliance requirements. Gil Resendiz MD 06/07/2024 11:08:55 AM This report has been signed electronically.Gil Resendiz MD Number of Addenda: 0 Note Initiated On: 06/07/2024 10:45 AM Scope In: Scope Out: Endoscopy Department at [facility] - [address] [place] [phone] Procedure Note Gil Resendiz MD - 06/07/2024 [facility] GI Patient Name: Jose Frias Procedure Date: 06/07/2024 10:45 AM Date of : 1955 Age: 68 Room: ROOM 14 Gender: Male Note Status: Finalized Attending MD: Gli Resendiz MD, Procedure Date No Time: 06/07/2024 [...] retroflexion views. Procedure Code(s): --- Professional --- 67391, Colonoscopy, flexible; diagnostic, including collection of specimen(s) by brushing or washing,when performed (separate procedure) Diagnosis Code(s): --- Professional --- R19.4, Change in bowel habit R19.5, Other fecal abnormalities R63.4, Abnormal weight loss CPT copyright 2020 [employer]. All rights reserved. The codes documented in this report are preliminary and upon continuous improvement coordinator reviewmay be revised to meet current compliance requirements. Gil Resendiz MD 06/07/2024 11:08:55 AM This report has been signed electronically.Gil Resendiz MD Number of Addenda: 0 Note Initiated On: 06/07/2024 10:45 AM Scope In: Scope Out: Endoscopy Department at [facility] - [address] [place] [phone] IMPRESSION: - Non-bleeding internal hemorrhoids. - The examination was otherwise normal on directand retroflexion views. - No specimens collected. Recommendation: - Perform an upper GI endoscopy today. - Repeat colonoscopy in 10 years forsurveillance. Gil Resendiz MD GI~PROCEDURE ORDERABLES Final Result * Lipid panel (11/26/2023) LDL/HDL Ratio 2 0 - 4 Triglycerides 34 0 - 150 mg/dL Cholesterol 154 0 - 200 mg/dL HDL 80 >=40 mg/dL LDL Cholesterol 68 0 - 100 mg/dL Blood Venous blood specimen / Unknown us Historical Provider LAB BLOOD ORDERABLES Janine l Result * Hepatitis C Screening (12/09/2021) Hepatitis C Screening Abstracted us Historical Provider HEALTH MAINTENANCE Final Result from Last 3 Months or Most Recently Relevant to Health Maintenance Insurance [facility] Care Teams Commercial Or Institutional Cleaner Relationship Specialty Start Date End Date Christiane Holder MD [address] [place] [id number] PCP - General 06/03/99
== END 2024-11-10 08:43 | disposition home or self-care (01) ==
LOC: HO.HUSH 08:16
PROVIDERS: PCP Internal Medicine; Visit Provider Urology
DX: C61 Malignant neoplasm of prostate (principal); N40.1 Benign prostatic hyperplasia with lower urinary tract symptoms
CPT/HCPCS: 99213